=== PATIENT | female | born 1995 | race African-American/Black ===

== ENCOUNTER 2020-06-25 15:47 | Observation (INO) | payer OTHER, SELFPAY ==
[2020-06-25] VITALS (13 sets, daily range): BP systolic 103–141; BP diastolic 47–70; PULSE 80–95; RESP 18–32; TEMP 36.2–37.4; O2SAT 96–100; BMI 55.1
--- NOTE | ~2020-06-25 | CT_ITS ---
EXAMINATION: CTA chest PE protocol DATE: 06/25/2020 18:57 INDICATION: Chest pain TECHNIQUE: Computed tomography (CT) pulmonary angiogram of the chest was performed with 100 mL Omnipa que-350 intravenous contrast. Additional 3D reconstructions utilizing coronal maximum intensity proje ction (MIP) were performed. Automated exposure control and iterative reconstruction technique were em ployed. The dose-length product was 967.08 mGy-cm. COMPARISON: None FINDINGS: Good contrast opacification of the pulmonary arteries. There is mild streak artifact from dense contr ast in the superior vena cava and right atrium. Mild to moderate scattered respiratory motion artifac t. Together this significantly decreases sensitivity in the subsegmental and several of the segmental pulmonary arteries with evaluation in the basilar subsegmental pulmonary arteries is essentially non diagnostic. No pulmonary embolism. No pneumonia or other airspace disease, pulmonary edema, pleural e ffusion or pneumothorax. Mild cardiomegaly. Thoracic aorta is normal in caliber with no dissection. M edian sternotomy wires and postoperative changes along the pulmonary outflow tract consistent with re ported history of prior congenital heart defect repair. Mild mediastinal lymphadenopathy with largest lymph node measuring 2.0 x 1.4 cm at the AP window. IMPRESSION: 1. No pulmonary embolism or other acute cardiopulmonary disease. Sensitivity in some of the segmental and subsegmental pulmonary arteries is significantly decreased by mild to moderate motion artifact. 2. Cardiomegaly with postoperative changes consistent with reported history of prior congenital heart defect repair. 3. Nonspecific mild NaSal lymphadenopathy which is likely reactive. Reviewed, dictated and finalized at location A. SCHOOL HVAC R INSTRUCTOR IMPRESSION: 1. No pulmonary embolism or other acute cardiopulmonary disease. Sensitivity in some of the segmental and subsegmental pulmonary arteries is significantly dec reased by mild to moderate motion artifact. 2. Cardiomegaly with postoperative changes consistent with reported history of prior congenital heart defect repair. 3. Nonspecific mild NaSal lymphadenopathy which is likely reactive.
--- NOTE | ~2020-06-25 | XR_ITS ---
EXAMINATION: XR chest 1V portable DATE: 06/25/2020 16:51 INDICATION: Shortness of breath and left-sided chest pain. TECHNIQUE: frontal view of the chest was obtained. COMPARISON: None FINDINGS: Evaluation limited by portable technique and patient body habitus. Cardiomegaly. No definitive airspa ce opacities, pleural effusion or pneumothorax. A few surgical clips projecting over the superior med iastinum. IMPRESSION: 1. Cardiomegaly. 2. No evident airspace disease although sensitivity is decreased by body habitus and portable techniq ue. Reviewed, dictated and finalized at location A. IAL LIBRARY LIBRARIAN IMPRESSION: 1. Cardiomegaly. 2. No evident airspace disease although sensitivity is decreased by body habitu s and portable technique.
--- NOTE | 2020-06-25 16:16 | ECG_ITS ---
Measurements Intervals [place] Rate: 95 P: 31 NE: 207 QRS: 70 QRSD: 169 T: 53 QT: 424 QTc: 535 Interpretive Statements SINUS RHYTHM WITH FIRST DEGREE AV BLOCK RIGHT BUNDLE BRANCH BLOCK ABNORMAL ECG Electronically Signed On 06-25-2020 16:21:03 BUDGET MANAGER by Krishna Freeman D.O.
--- NOTE | 2020-06-25 16:22 | ED.CHESTPAIN ---
HPI - Chest Pain General Chief Complaint: Chest Pain Stated Complaint: Chest pain Time Seen by Provider: 06/25/20 15:58 Source: patient Mode of arrival: ambulatory Limitations: no limitations History of Present Illness HPI narrative: This patient is a 25 year old female who presents for evaluation of left chest pain. She noted yesterday she was having sharp chest pain when she coughs , breaths or moves a certain way. She also reports she noticed shortness of breath with walking in to Er. She denies fever, cough, nausea, vomiting leg swelling, calf pain. She does note she had an outpatient. gynecological procedure done in clinic 2 weeks ago. She does have a cardiac history. Her aunt states she had hole in her heart as an that was repaired. She follows cardiology yearly . She was evaluated 1 months ago and she was told she is doing well . Related Data Home Medications Medication Instructions Recorded Confirmed furosemide 40 mg PO DAILY 06/25/20 06/25/20 Allergies Allergy/AdvReac Type Severity Reaction Status Date / Time No Known Allergies Allergy Unknown Verified 06/25/20 21:36 Review of Systems Review of Systems: All systems reviewed & are unremarkable except as noted in HPI and below Constitutional: Constitutional: Denies chills and Denies fever(s) Cardiovascular: Cardiovascular: Reports chest pain and Denies radiating jaw, neck or arm pain Respiratory: Respiratory: Denies cough, Reports dyspnea and Denies wheezing Gastrointestinal: Gastrointestinal: Denies abdominal pain and Denies nausea PMFSH Past Medical History Medical History Anemia Surgical History Surgical History H/O heart surgery Family History Family History Sibling Congestive heart failure Mother Diabetes mellitus Grandparent Malignant neoplasm of prostate Grandparent Diabetes mellitus Social History Social History Smoking status: Never smoker Alcohol intake: current Drinks per week: 3 Substance use: never Gender identity (if verbalized by the patient): Female Spiritual care concerns: No Exam Const: General: no acute distress and alert Orientation/consciousness: patient oriented x3 HENMT: Head: normocephalic and atraumatic General nose exam: No nasal polyps present Eyes: EOM: EOMs intact bilaterally Chest: Chest palpation & inspection: tenderness Resp: Effort & Inspection: normal respiratory effort and no retractions Auscultation: clear to auscultation bilaterally Cardio: Rate: regular rate Rhythm: regular rhythm Heart sounds: no murmurs GI: GI Palp: Yes Soft to palpation, No Tenderness to palpation present (GI), No Guarding due to palpation present (GI) and No Rigid due to palpation Auscultation: bowels sounds not normal : Speculum Exam - Vagina: vaginal bleeding (minimal oozing, no clots) Speculum Exam - Cervix: Cervical os closed Skin: General skin exam: normal color Rashes: no rashes Neuro: General: patient oriented x3 and moves all extremities Course Reevaluation(s) Reevaluation #1: I discussed with patient that she has anemia likely cause of her sob. She has history of anemia and heavy menstrual cycles. She is currently on her cycle . She is only having to use 3 pads a day. Date: 06/25/20 Time: 18:00 Consultations Consultation #1: I discussed case with hospitalist (Stephanie silverio) who spoke with her attending. She states attending will not accept patient and patient needs to be admitted to web editor. They will consult if needed. Date: 06/25/20 Time: 18:45 Consultation #2: I Discussed case with Dr. Fulton while she is in ER. 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 I Discussed case. She states she will admit patient if no acute cardiac or pulmonary issues.
[2020-06-25 17:03] LABS: Basophils Percent Auto 0.4 % (0.2-1.2); Eosinophils Absolute Auto 0.1 K/mm3 (0-0.3); Eosinophils Percent Auto 1.2 % (0-4.4); Immature Granulocyte Absolute 0.06 K/mm3 (0.00-0.031); Immature Granulocyte Percent A 0.7 % (0-0.5); Lymphocytes Absolute Auto 1.79 K/mm3 (0.9-3.2); Lymphocytes Percent Auto 19.5 % (18.3-44.2); Mean Corpuscular HGB Conc 26.9 g/dl (32-36); Mean Corpuscular Hemoglobin 17.9 pg (26-34); Mean Corpuscular Volume 66.7 fl (80-100); Mean Platelet Volume 9.9 fl (7.4-10.4); Monocytes Absolute Auto 0.7 K/mm3 (0.1-0.6); Monocytes Percent Auto 7.6 % (2.6-8.5); Neutrophils Absolute Auto 6.5 K/mm3 (1.3-6.7); Neutrophils Percent Auto 70.6 % (45.5-73.1); Nucleated Red Blood Cells Perc 0.4 % (0.0-0.2); Platelet Count Result 320 k/mm3 (150-375); Red Blood Count 2.79 M/mm3 (4.2-5.4); Red Cell Distribution Width 18.2 % (11.5-14.5); White Blood Count 9.2 K/mm3 (4.5-10.0)
[2020-06-25 17:08] LABS: Hematocrit 18.6 % (37.0-47.0)
[2020-06-25 17:09] LABS: Anisocytosis 2+ (NORMAL); Hypochromasia 2+ (NORMAL); Platelet Estimate Adequate (Adequate)
[2020-06-25 17:13] LABS: Anion Gap 8 mmol/L (8-16); Blood Urea Nitrogen 7 mg/dL (7-17); Calcium 8.8 mg/dL (8.4-10.2); Carbon Dioxide 29 mmol/L (22-30); Chloride 102 mmol/L (98-107); Estimated CRCL calculation 199 ml/min; Estimated Glomerular Filt Rate > 60; Glucose 121 mg/dL (65-105); Potassium 3.3 mmol/L (3.4-5.0); Sodium 139 mmol/L (137-145)
[2020-06-25 17:15] LABS: INR 1.1; Prothrombin Time 14.5 Seconds (11.1-14.7)
[2020-06-25 17:16] LABS: Partial Thromboplastin Time 24.5 SECONDS (22.3-36.8)
[2020-06-25 17:18] LABS: D Dimer 0.52 ug/mL (<0.48)
[2020-06-25 17:25] LABS: Troponin I < 0.012 ng/mL (0.000-0.034)
[2020-06-25 17:42] LABS: Iron 12 ug/dL (37-170)
[2020-06-25 17:52] LABS: Percent Iron Saturation 3 % (20-50)
[2020-06-25] MEDS: TUBING, BLOOD PLUM PUMP TUBING 1 EACH XX (19:52)
[2020-06-25] MEDS: SODIUM CHLORIDE 0.9% IV 250 ML 30 ML IV CONT (19:52)
[2020-06-25 19:53] LABS: Troponin I < 0.012 ng/mL (0.000-0.034)
--- NOTE | 2020-06-25 21:20 | ADMGEN ---
This patient, Angela Helms, was admitted to Medical Room 348-01. Patient/family oriented to hospital policies and general routines including ID bracelet, bed and alarms, visiting hours, pain management, procedures, bathroom and other care routines, personal items, smoking policy, room service/diet, and visiting hours. Information on how to activate the Rapid Response Team has been discussed. Patient/Family are encouraged to report perceived risks to care and to ask questions if they do not understand what they are told or what they should do.
[2020-06-26] VITALS (13 sets, daily range): BP systolic 110–144; BP diastolic 37–85; PULSE 75–87; RESP 14–20; TEMP 35.8–37.2; O2SAT 98–100
[2020-06-26 08:09] LABS: Basophils Percent Auto 0.4 % (0.2-1.2); Eosinophils Absolute Auto 0.2 K/mm3 (0-0.3); Eosinophils Percent Auto 2.2 % (0-4.4); Hematocrit 24.7 % (37.0-47.0); Hemoglobin 7.3 g/dL (12.0-15.0); Immature Granulocyte Absolute 0.06 K/mm3 (0.00-0.031); Immature Granulocyte Percent A 0.6 % (0-0.5); Lymphocytes Absolute Auto 2.26 K/mm3 (0.9-3.2); Lymphocytes Percent Auto 20.9 % (18.3-44.2); Mean Corpuscular HGB Conc 29.6 g/dl (32-36); Mean Corpuscular Hemoglobin 21.2 pg (26-34); Mean Corpuscular Volume 71.6 fl (80-100); Mean Platelet Volume 9.9 fl (7.4-10.4); Monocytes Absolute Auto 0.7 K/mm3 (0.1-0.6); Monocytes Percent Auto 6.1 % (2.6-8.5); Neutrophils Absolute Auto 7.6 K/mm3 (1.3-6.7); Neutrophils Percent Auto 69.8 % (45.5-73.1); Nucleated Red Blood Cells Perc 0.3 % (0.0-0.2); Platelet Count Result 294 k/mm3 (150-375); Red Blood Count 3.45 M/mm3 (4.2-5.4); Red Cell Distribution Width 21.9 % (11.5-14.5); White Blood Count 10.8 K/mm3 (4.5-10.0)
[2020-06-26 09:35] LABS: Platelet Estimate Adequate (Adequate)
[2020-06-26 09:36] LABS: Anisocytosis 2+ (NORMAL); Hypochromasia 1+ (NORMAL); Ovalocytes 1+ (NORMAL)
--- NOTE | 2020-06-26 11:02 | PM.IMHP ---
H&P: HPI History of Present Illness Date/Time: 06/26/20 11:02 Chief complaint: Symptomatic Anemia, Abnormal Vaginal Bleeding Narrative: Angela Helms is a 25 year old female who presented to the Ed last night with CP and SOB, was ruled out for cardiopulmonary cause but had Hgb of 5.0. Has heavy menstrual bleeding, at end of period now and not heavy today. Previously used Depo but did not like how it made her feel and gained weight. Now on OCP but forgets pills a lot and bleeds more than once a month. SHe was seen by me last night in the ED and this am. Today she feels completely better, all symptoms have resolved, bleeding is minimal. Review of Systems Review of Systems: All systems reviewed & are unremarkable except as noted in HPI and below (ED note and HPI) PMFSH Past Medical History Medical History Anemia Surgical History Surgical History H/O heart surgery Family History Family History Sibling Congestive heart failure Mother Diabetes mellitus Grandparent Malignant neoplasm of prostate Grandparent Diabetes mellitus Social History Social History Smoking status: Never smoker Alcohol intake: current Drinks per week: 3 Substance use: never Gender identity (if verbalized by the patient): Female Spiritual care concerns: No Meds Home Medications and Allergies Home Medications Medication Instructions Recorded Confirmed Type furosemide 40 mg PO DAILY 06/25/20 06/25/20 History Allergies Allergy/AdvReac Type Severity Reaction Status Date / Time No Known Allergies Allergy Unknown Verified 06/25/20 21:36 Vital Signs Vital Signs - 24 hr 06/25/20 16:13 06/25/20 17:24 06/25/20 18:01 Temperature 98.2 F Pulse Rate 95 89 91 Respiratory Rate 20 20 20 Blood Pressure 141/70 H 103/56 L 124/61 Pulse Oximetry 97 98 98 06/25/20 18:44 06/25/20 19:42 06/25/20 20:00 Temperature 99.2 F 98.2 F Pulse Rate 89 91 88 Respiratory Rate 20 18 24 H Blood Pressure 124/61 123/67 112/51 L Pulse Oximetry 98 99 98 06/25/20 20:53 06/25/20 20:55 06/25/20 21:30 Temperature 99.1 F 99.4 F Pulse Rate 87 87 88 Respiratory Rate 32 H 32 H 18 Blood Pressure 117/56 L 117/56 L 124/62 Pulse Oximetry 96 96 100 06/25/20 22:00 06/25/20 22:44 06/25/20 23:01 Temperature 97.1 F L 97.1 F L 97.1 F L Pulse Rate 89 84 85 Respiratory Rate 20 20 18 Blood Pressure 121/62 118/47 L 120/54 L Pulse Oximetry 100 100 99 06/25/20 23:16 06/26/20 00:16 06/26/20 01:16 Temperature 97.3 F L 97.3 F L 97.3 F L Pulse Rate 80 87 81 Respiratory Rate 18 18 20 Blood Pressure 124/53 L 110/50 L 140/61 Pulse Oximetry 100 100 100 06/26/20 02:16 06/26/20 02:58 06/26/20 03:18 Temperature 97.7 F 97 F L 96.4 F L Pulse Rate 82 82 80 Respiratory Rate 20 20 20 Blood Pressure 118/59 L 125/85 117/50 L Pulse Oximetry 99 100 100 06/26/20 03:35 06/26/20 04:35 06/26/20 05:04 Temperature 97.3 F L 98.9 F 98.9 F Pulse Rate 80 80 80 Respiratory Rate 20 18 18 Blood Pressure 125/50 L 144/60 H 144/60 H Pulse Oximetry 100 98 98 06/26/20 05:35 06/26/20 06:30 06/26/20 10:00 Temperature 97.3 F L 98.1 F 96.8 F L Pulse Rate 75 75 82 Respiratory Rate 18 20 16 Blood Pressure 137/64 127/56 L 127/52 L Pulse Oximetry 99 99 100 Exam Const: General: no acute distress Neck: Neck: no JVD Resp: Auscultation: clear to auscultation bilaterally Cardio: Rate: regular rate Rhythm: regular rhythm GI: GI Palp: Yes Soft to palpation Auscultation: normal bowel sounds Other: exam limited by habitus : Other: deferred Skin: General skin exam: normal color Extrem: General: normal to inspection Psych: Mental Status: mental status grossly normal Affect: normal affect H&P: Results Labs Labs: Short CBC 12/
--- NOTE | 2020-06-26 11:25 | PM.DS ---
DS: Admitting Diagnosis Admitting Diagnosis Admitting Diagnosis: Symptomatic Anemia, Abnormal Vaginal Bleeding DS: Discharge Diagnosis Discharge Diagnosis (1) Symptomatic anemia: Code(s): D64.9 - Anemia, unspecified Status: Acute (2) Abnormal uterine bleeding: Code(s): N93.9 - Abnormal uterine and vaginal bleeding, unspecified Status: Acute DS: Summary Hospital Course Reason for hospitalization: severe anemia Hospital Course: Transfused 2 units pRBCs with complete resolution of all symptoms. Status at Discharge Functional status at discharge: independent ambulation Overall status at discharge: patient is back to baseline Time Spent with Patient Time attestation: Total time spent providing and/or coordinating discharge services: Time spent: Less than 30 minutes Exam Const: General: no acute distress Resp: Auscultation: clear to auscultation bilaterally Cardio: Rate: regular rate Rhythm: regular rhythm Psych: Mental Status: mental status grossly normal DS: Data Data Completed and Pending Labs on day of discharge: Labs from last 24 hours 06/26/20 06/25/20 06/25/20 07:55 19:25 17:38 WBC 10.8 H RBC 3.45 L Hgb 7.3 L Hct 24.7 L MCV 71.6 L D MCH 21.2 L D MCHC 29.6 L RDW 21.9 H Plt Count 294 MPV 9.9 Immature Gran % (Auto) 0.6 H Neut % (Auto) 69.8 Lymph % (Auto) 20.9 [place] % (Auto) 6.1 Eos % (Auto) 2.2 Baso % (Auto) 0.4 Lymph # (Auto) 2.26 [place] # (Auto) 0.7 H Eos # (Auto) 0.2 Baso # (Auto) 0.0 Abs Immat Gran (auto) 0.06 H Absolute Neuts (auto) 7.6 H Absolute Nucleated RBC 0.0 Nucleated RBC % 0.3 H Platelet Estimate Adequate Hypochromasia 1+ Anisocytosis 2+ Ovalocytes 1+ PT INR APTT D-Dimer Sodium Potassium Chloride Carbon Dioxide Anion Gap BUN Creatinine Estim Creat Clear Calc Estimated GFR Glucose Calcium Iron TIBC % Saturation Troponin I < 0.012 Blood Type B Positive Antibody Screen Negative Crossmatch See Detail 06/25/20 06/25/20 06/25/20 16:53 16:53 16:53 WBC RBC Hgb Hct MCV MCH MCHC RDW Plt Count MPV Immature Gran % (Auto) Neut % (Auto) Lymph % (Auto) [place] % (Auto) Eos % (Auto) Baso % (Auto) Lymph # (Auto) [place] # (Auto) Eos # (Auto) Baso # (Auto) Abs Immat Gran (auto) Absolute Neuts (auto) Absolute Nucleated RBC Nucleated RBC % Platelet Estimate Hypochromasia Anisocytosis Ovalocytes PT 14.5 INR 1.1 APTT 24.5 D-Dimer 0.52 H Sodium 139 Potassium 3.3 L Chloride 102 Carbon Dioxide 29 Anion Gap 8 BUN 7 Creatinine 0.60 L Estim Creat Clear Calc 199 Estimated GFR > 60 Glucose 121 H Calcium 8.8 Iron 12 L TIBC 420 % Saturation 3 L Troponin I < 0.012 Blood Type Antibody Screen Crossmatch 06/25/20 16:53 WBC 9.2 RBC 2.79 L Hgb 5.0 L* Hct 18.6 L* MCV 66.7 L MCH 17.9 L MCHC 26.9 L RDW 18.2 H Plt Count 320 MPV 9.9 Immature Gran % (Auto) 0.7 H Neut % (Auto) 70.6 Lymph % (Auto) 19.5 [place] % (Auto) 7.6 Eos % (Auto) 1.2 Baso % (Auto) 0.4 Lymph # (Auto) 1.79 [place] # (Auto) 0.7 H Eos # (Auto) 0.1 Baso # (Auto) 0.0 Abs Immat Gran (auto) 0.06 H Absolute Neuts (auto) 6.5 Absolute Nucleated RBC 0.0 Nucleated RBC % 0.4 H Platelet Estimate Adequate Hypochromasia 2+ Anisocytosis 2+ Ovalocytes PT INR APTT D-Dimer Sodium Potassium Chloride Carbon Dioxide Anion Gap BUN Creatinine Estim Creat Clear Calc Estimated GFR Glucose Calcium Iron TIBC % Saturation Troponin I Blood Type Antibody Screen Crossmatch Discharge Plan Discharge Attending physician on discharge: Shantal Fulton Discharging Clinician: Shantal Fulton Anticipated Discharge Date/Time: 06/26/20 14
--- NOTE | 2020-06-26 14:53 | PC.NURSE ---
Patient refuses flu vaccine. She voiced that she will get it at her doctors office.
== END 2020-06-26 15:05 | disposition home or self-care (01) ==
LOC: ANHED 19:42 → ANH3MED 20:05
PROVIDERS: Admitting Provider Obstetrics & Gynecology; Emergency Provider General Practice; PCP Emergency Medicine; Visit Provider Obstetrics & Gynecology
DX: D64.9 Anemia, unspecified (principal); N93.9 Abnormal uterine and vaginal bleeding, unspecified; R07.89 Other chest pain; I51.7 Cardiomegaly; R59.0 Localized enlarged lymph nodes; R94.31 Abnormal electrocardiogram [ECG] [EKG]; Z98.890 Other specified postprocedural states; Z79.899 Other long term (current) drug therapy
CPT/HCPCS: 36415; 36430; 71045; 71275; 80048; 81025; 83540; 83550; 84484; 85025; 85380; 85610; 85730; 86850; 86900; 86901; 86923; 93005; 96360; 96361; 96374; 99285; G0378; G0379; J0131; J7050; P9016; Q9967

== ENCOUNTER 2020-10-17 16:23 | Emergency (ER) | payer OTHER, SELFPAY ==
[2020-10-17 16:27] VITALS: BP 122/59; PULSE 80; RESP 16; TEMP 36.3; O2SAT 100
[2020-10-17 16:42] LABS: Basophils Absolute Auto 0.1 K/mm3 (0.0-0.1); Basophils Percent Auto 0.7 % (0.2-1.2); Eosinophils Absolute Auto 0.2 K/mm3 (0-0.3); Eosinophils Percent Auto 2.4 % (0-4.4); Hematocrit 38.5 % (37.0-47.0); Hemoglobin 12.8 g/dL (12.0-15.0); Immature Granulocyte Absolute 0.02 K/mm3 (0.00-0.031); Immature Granulocyte Percent A 0.3 % (0-0.5); Lymphocytes Absolute Auto 2.09 K/mm3 (0.9-3.2); Lymphocytes Percent Auto 29.1 % (18.3-44.2); Mean Corpuscular HGB Conc 33.2 g/dl (32-36); Mean Corpuscular Hemoglobin 26.4 pg (26-34); Mean Corpuscular Volume 79.4 fl (80-100); Monocytes Absolute Auto 0.5 K/mm3 (0.1-0.6); Monocytes Percent Auto 6.5 % (2.6-8.5); Neutrophils Absolute Auto 4.4 K/mm3 (1.3-6.7); Platelet Count Result 315 k/mm3 (150-375); Red Blood Count 4.85 M/mm3 (4.2-5.4); Red Cell Distribution Width 13.3 % (11.5-14.5); White Blood Count 7.2 K/mm3 (4.5-10.0)
[2020-10-17 16:54] LABS: Alanine Aminotransferase 18 U/L (4-35); Albumin Level 4.3 g/dL (3.5-5.1); Alkaline Phosphatase 104 U/L (38-126); Anion Gap 7 mmol/L (8-16); Aspartate Amino Transferase 22 U/L (14-36); Bilirubin,Total 0.3 mg/dL (0.2-1.3); Blood Urea Nitrogen 9 mg/dL (7-17); Calcium 9.3 mg/dL (8.4-10.2); Carbon Dioxide 28 mmol/L (22-30); Chloride 106 mmol/L (98-107); Estimated CRCL calculation 193 ml/min; Estimated Glomerular Filt Rate > 60; Glucose 111 mg/dL (65-105); Lipase 41 U/L (23-300); Potassium 3.5 mmol/L (3.4-5.0); Sodium 141 mmol/L (137-145)
--- NOTE | 2020-10-17 21:34 | PC.NURSE ---
Patient called with no answer at [phone]
== END 2020-10-17 21:34 | disposition left against medical advice (07) ==
LOC: ANHED 21:48
PROVIDERS: Emergency Provider Emergency Medicine; PCP Emergency Medicine
DX: R10.30 Lower abdominal pain, unspecified (principal)
CPT/HCPCS: 36415; 80053; 83690; 85025; 99199

== ENCOUNTER → 2020-10-22 01:52 | Outpatient (CLI) | payer OTHER, SELFPAY ==
[2020-10-22 19:34] LABS: SARS-CoV-2 RNA PCR Negative
== END ==
PROVIDERS: PCP Emergency Medicine; Visit Provider Obstetrics & Gynecology
DX: Z01.812 Encounter for preprocedural laboratory examination (principal); Z20.822 Contact with and (suspected) exposure to COVID-19
CPT/HCPCS: C9803; U0003; U0005

== ENCOUNTER 2020-10-22 11:00 | Outpatient (CLI) | payer OTHER, SELFPAY ==
--- NOTE | 2020-10-22 11:18 | ECG_ITS ---
Measurements Intervals [place] Rate: 74 P: 40 HI: 231 QRS: 72 QRSD: 174 T: 57 QT: 468 QTc: 520 Interpretive Statements SINUS RHYTHM WITH FIRST DEGREE AV BLOCK RIGHT BUNDLE BRANCH BLOCK ABNORMAL ECG Electronically Signed On 10-22-2020 11:36:15 CDT by Krishna Freeman D.O.
[2020-10-22 11:21] LABS: Hematocrit 40.7 % (37.0-47.0); Hemoglobin 13.2 g/dL (12.0-15.0)
[2020-10-22 11:31] LABS: Potassium 3.9 mmol/L (3.4-5.0)
[2020-10-22 12:01] LABS: Anion Gap 5 mmol/L (8-16); Blood Urea Nitrogen 10 mg/dL (7-17); Calcium 8.9 mg/dL (8.4-10.2); Carbon Dioxide 32 mmol/L (22-30); Chloride 103 mmol/L (98-107); Estimated Glomerular Filt Rate > 60; Glucose 121 mg/dL (65-105); Sodium 140 mmol/L (137-145)
== END 2020-10-22 11:01 | disposition home or self-care (01) ==
PROVIDERS: PCP Emergency Medicine; Visit Provider Anesthesiology
DX: N93.9 Abnormal uterine and vaginal bleeding, unspecified (principal); Z79.899 Other long term (current) drug therapy; Z01.818 Encounter for other preprocedural examination; I45.10 Unspecified right bundle-branch block; I44.0 Atrioventricular block, first degree
CPT/HCPCS: 36415; 80048; 85014; 85018; 93005; C9803; U0003; U0005

== ENCOUNTER 2020-10-26 01:40 | Day surgery (SDC) | payer OTHER, SELFPAY ==
[2020-10-11 10:38] VITALS: BMI 52.8
[2020-10-26] MEDS: ACETAMINOPHEN 500 MG TABLET 1000 MG PO (10:59)
[2020-10-26 11:04] VITALS: BMI 53.6
[2020-10-26 11:05] VITALS: BP 145/73; PULSE 83; RESP 20; TEMP 36.6; O2SAT 98
--- NOTE | 2020-10-26 11:17 | WPDHPUPDATE1 ---
History and Physical Update Update Date/Time: 10/26/20 11:17 History and Physical has been reviewed, including an updated exam of the patient. There are NO changes in the patient's condition. Risks, benefits, and alternatives have been discussed and questions answered. Patient agrees to proceed with procedure.
--- NOTE | 2020-10-26 11:29 | WPDANESEPPF ---
Anes - Initial Pre Proc Eval Procedure: Operation Date: 10/26/20 12:45 Proposed Procedures p Hysteroscopy, Endometrial Biopsy with Polypectomy - Teddy Sorto MD Date/Time: 10/26/20 11:29 Surgeon: Teddy Sorto MD Pre Op Diagnosis: uterine polyp Patient Data Age: 25 Gender: F Height: 5 ft 7 in Weight: 155.2 kg Last Vital Signs Temp 36.6 C 10/26/20 11:05 Pulse 83 10/26/20 11:05 Resp 20 10/26/20 11:05 BP 145/73 H 10/26/20 11:05 Pulse Ox 98 10/26/20 11:05 Allergies Allergy/AdvReac Type Severity Reaction Status Date / Time No Known Allergies Allergy Unknown Verified 10/26/20 10:54 Home Medications Medication Instructions Recorded Confirmed Type furosemide 40 mg PO DAILY 06/25/20 10/26/20 History ferrous sulfate 325 mg PO BID #60 tablet 06/26/20 10/26/20 Rx Patient hx anesthesia problems: none Family hx anesthesia problems: none PMFSH Past Medical History Medical History Anemia Surgical History Surgical History H/O heart surgery Tetralogy of Fallot s/p repair Family History Family History Sibling Congestive heart failure Mother Diabetes mellitus Grandparent Malignant neoplasm of prostate Grandparent Diabetes mellitus Social History Social History Smoking status: Never smoker Alcohol intake: current Drinks per week: 3 Substance use: never Living arrangements: with family Gender identity (if verbalized by the patient): Female Spiritual care concerns: No Anes - Eval Final PreProcedure Day of Procedure 10/26/20 11:29 Patient weight: super morbidly obese Heart: regular rate and rhythm Lungs: clear to auscultation Airway: Mallampati scale class II Neurological: alert and oriented Last oral intake: >/= 8 hours ASA classification: III Emergent: no Anesthetic plan: proceed Anesthesia type and monitoring: general GIVS and standard monitoring Informed Consent: The patient's anesthetic plan and its attendant risks and benefits were discussed with the patient/family/POA. Questions were solicited and answers provided to the satisfaction of the patient/family/POA.
[2020-10-26] MEDS: LACTATED RINGERS 1,000 ML 30 ML IV CONT (11:38)
[2020-10-26 12:32] VITALS: BP 130/88; PULSE 74; RESP 12; O2SAT 100
--- NOTE | 2020-10-26 12:50 | P.OP_ITS ---
Procedure Note - Detailed Date of procedure: 10/26/20 Pre-op diagnosis: uterine polyp Abnormal uterine bleeding Post-op diagnosis: same Procedure performed: Hysteroscopy D&C, Polypectomy Description of procedure: The patient was taken the operating room. She was prepped and draped in the dorsal lithotomy position after induction of mac anesthesia. A speculum was placed in the vagina. The cervix grasped with a ten aculum. The cervix was injected at 3 and 9:00 a.m. with 1% lidocaine. Cervix was dilated up to 1 cm. The hysteroscope was inserted the intrauterine cavity and the above findings were noted. A medium-size curette was then used to curettage all surfaces within the endometrial cavity. The endometrial curettings were collected on a Telfa. Polypectomy was performed using hysteroscopic scissors. Before was completely transected across the base was grasped with polyp forceps. Samples were submitted to the pathology department. Hysteroscope was reinserted the intrauterine cavity to re-examine the endometrial surfaces. The hysteroscope was withdrawn. The tenaculum was removed. The speculum was removed. The patient tolerated the procedure well. She was taken recovery room stable condition. Sponge lap needle counts were correct x2. Anesthesia: MAC Surgeon: Teddy Sorto MD Estimated blood loss (mL): 75 Drains: No Packing: No Pathology: yes Complications: No immediate complications Condition: stable Disposition: PACU Findings: There was some thickening of the endometrium. There was normal appearing vulva vagina and cervix.
[2020-10-26 13:00] VITALS: BP 131/74; PULSE 72; RESP 20
[2020-10-26 13:25] VITALS: BP 133/70; PULSE 72; RESP 20
== END 2020-10-26 13:34 | disposition home or self-care (01) ==
PROVIDERS: PCP Emergency Medicine; Visit Provider Obstetrics & Gynecology
PROC: 0U5B8ZZ Destruction of Endometrium, Via Natural or Artificial Opening Endoscopic (ICD-10-PCS; CPT 58563; principal; 2020-10-26 12:45)
DX: N93.9 Abnormal uterine and vaginal bleeding, unspecified (principal); N84.0 Polyp of corpus uteri; D64.9 Anemia, unspecified; E66.01 Morbid (severe) obesity due to excess calories; Z68.43 Body mass index [BMI] 50.0-59.9, adult
CPT/HCPCS: 58558; 88305; A9270; J2250; J2405; J2704; J3010; J7030; J7120

== ENCOUNTER 2021-01-22 14:06 | Emergency (ER) | payer OTHER, SELFPAY ==
[2021-01-22 14:11] VITALS: BP 138/88; PULSE 82; RESP 16; TEMP 36.4; O2SAT 99
--- NOTE | 2021-01-22 14:55 | ED.FEMALEGU ---
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 Patient denies any vaginal bleeding or discharge. Patient denies any dysuria. Patient denies any fever or chills. Related Data Home Medications Medication Instructions Recorded Confirmed furosemide 40 mg PO DAILY 06/25/20 10/26/20 Allergies Allergy/AdvReac Type Severity Reaction Status Date / Time No Known Allergies Allergy Unknown Verified 10/26/20 10:54 Review of Systems Review of Systems: All systems reviewed & are unremarkable except as noted in HPI and below Constitutional: Constitutional: Denies body ache(s), Denies chills, Denies excessive sweating, Denies fatigue, Denies fever(s), Denies headache(s), Denies lethargy, Denies malaise, Denies weakness and Denies weight loss Eyes: Eyes: Denies blurry vision, Denies change in vision and Denies loss of vision ENT: Denies dizziness, Denies ear discharge, Denies headache(s), Denies lip swelling, Denies epistaxis, Denies nasal congestion, Denies neck pain, Denies throat swelling and Denies tongue swelling Cardiovascular: Cardiovascular: Denies chest pain, Denies chest pain at rest, Denies chest pain with activity, Denies diaphoresis, Denies rapid heart rate, Denies edema, Denies irregular heart rhythm, Denies lightheadedness, Denies palpitations, Denies dyspnea and Denies dyspnea on exertion Respiratory: Respiratory: Denies chest congestion, Denies cough, Denies hemoptysis, Denies dyspnea and Denies dyspnea on exertion Gastrointestinal: Gastrointestinal: Denies abdominal pain, Denies melena, Denies hematochezia, Denies diarrhea, Denies nausea, Denies vomiting and Denies hematemesis Musculoskeletal: Musculoskeletal: Denies abnormal gait, Denies deformity, Denies joint swelling, Denies limited range of motion, Denies neck pain and Denies numbness Neurologic: Denies Abnormal speech present, Denies abnormal gait, Denies confusion, Denies dizziness, Denies headache(s), Denies focal weakness, Denies loss of vision, Denies numbness, Denies Other visual disturbances, Denies Sensory deficit (Neuro) and Denies weakness Psychiatric: Psychiatric: Denies confusion, Denies depression, Denies auditory hallucinations, Denies homicidal ideation and Denies suicidal ideation Endocrine: Endocrine: Denies cold intolerance, Denies excessive sweating, Denies fatigue, Denies heat intolerance and Denies palpitations Hematologic/Lymphatic: Hematologic/Lymphatic: Denies easy bleeding and Denies easy bruising Allergic/Immunologic: Allergic/Immunologic: Denies lip swelling, Denies throat swelling and Denies tongue swelling PMFSH Past Medical History Medical History Anemia Surgical History Surgical History H/O heart surgery Tetralogy of Fallot s/p repair Family History Family History Sibling Congestive heart failure Mother Diabetes mellitus Grandparent Malignant neoplasm of prostate Grandparent Diabetes mellitus Social History Social History Smoking status: Never smoker Alcohol intake: current Drinks per week: 3 Substance use: never Gender identity (if verbalized by the patient): Female Spiritual care concerns: No Exam Const: General: cooperative, comfortable, no acute distress, well developed, alert and awake; No confusion Nutritional Appearance: obese Orientation/consciousness: oriented to person, oriented to place, oriented
[2021-01-22 15:16] LABS: Add Urine Microscopic? YES; Appearance Urine Clear (Clear); Bacteria Urine Trace /hpf; Bilirubin Urine Negative (Negative); Blood Urine Negative (Negative); Color Urine Yellow (Yellow); Glucose Urine UA Negative (Negative); Ketones Urine Negative (Negative); Leukocyte Esterase Ur Trace LEU/UL (Negative); Mucus Urine Rare /lpf; Nitrate Urine Negative (Negative); Protein Urine 1+ mg/dL (Negative); RBC Urine 0-2 /hpf (0-2); Specific Grav Ur 1.019 (1.001-1.035); Squamous Epithelial Cell Urine Many /hpf (Few); WBC Urine 0-3 /hpf
[2021-01-22 16:18] VITALS: BP 145/80; PULSE 85; RESP 19; O2SAT 100
== END 2021-01-22 16:20 | disposition home or self-care (01) ==
PROVIDERS: Emergency Provider Emergency Medicine; PCP Emergency Medicine
DX: T83.84XA Pain due to genitourinary prosthetic devices, implants and grafts, initial encounter (principal); R10.30 Lower abdominal pain, unspecified; Y76.1 Therapeutic (nonsurgical) and rehabilitative obstetric and gynecological devices associated with adverse incidents
CPT/HCPCS: 81001; 99283

== ENCOUNTER 2021-02-12 15:31 | Emergency (ER) | payer OTHER, SELFPAY ==
[2021-02-12 15:33] VITALS: BP 153/87; PULSE 91; RESP 20; TEMP 36.6; O2SAT 99
[2021-02-12 16:11] LABS: Basophils Absolute Auto 0.1 K/mm3 (0.0-0.1); Basophils Percent Auto 0.7 % (0.2-1.2); Eosinophils Absolute Auto 0.2 K/mm3 (0-0.3); Hematocrit 37.4 % (37.0-47.0); Hemoglobin 12.3 g/dL (12.0-15.0); Immature Granulocyte Absolute 0.01 K/mm3 (0.00-0.031); Immature Granulocyte Percent A 0.1 % (0-0.5); Lymphocytes Percent Auto 27.1 % (18.3-44.2); Mean Corpuscular HGB Conc 32.9 g/dl (32-36); Mean Corpuscular Hemoglobin 27.2 pg (26-34); Mean Corpuscular Volume 82.7 fl (80-100); Mean Platelet Volume 9.7 fl (7.4-10.4); Monocytes Absolute Auto 0.3 K/mm3 (0.1-0.6); Monocytes Percent Auto 4.6 % (2.6-8.5); Neutrophils Absolute Auto 4.8 K/mm3 (1.3-6.7); Neutrophils Percent Auto 65.5 % (45.5-73.1); Platelet Count Result 349 k/mm3 (150-375); Red Blood Count 4.52 M/mm3 (4.2-5.4); Red Cell Distribution Width 14.1 % (11.5-14.5); White Blood Count 7.4 K/mm3 (4.5-10.0)
--- NOTE | 2021-02-12 18:36 | ED.FEMALEGU ---
HPI - Female Genitourinary General Chief complaint: Vaginal Bleeding Stated complaint: VAG BLEED Time Seen by Provider: 02/12/21 18:18 Source: patient Mode of arrival: ambulatory Limitations: no limitations History of Present Illness HPI Narrative: This is a 26-year-old female that presents to the emergency department for abnormal uterine bleeding. Reports she was seen by her Runner Out and had an IUD placed about a week and a half ago. Reports she has been bleeding since that time. Reports over the last 2 days it has been heavy. She called her principal cyber engineer yesterday because she felt like her IUD was coming out and he had her pull it the rest of the way out. She reports since then she has been having some pelvic cramping. Denies fever, vomiting, or dysuria. Related Data Home Medications Medication Instructions Recorded Confirmed furosemide 40 mg PO DAILY 06/25/20 02/12/21 Allergies Allergy/AdvReac Type Severity Reaction Status Date / Time No Known Allergies Allergy Unknown Verified 02/12/21 18:40 Review of Systems Review of Systems: Narrative: CONSTITUTIONAL: Denies fever GASTROINTESTINAL: Report abdominal pain, nausea. Denies vomiting GENITOURINARY: Denies dysuria All systems reviewed & are unremarkable except as noted in HPI and below PMFSH Past Medical History Medical History Anemia Surgical History Surgical History H/O heart surgery Tetralogy of Fallot s/p repair Family History Family History Sibling Congestive heart failure Mother Diabetes mellitus Grandparent Malignant neoplasm of prostate Grandparent Diabetes mellitus Social History Social History Smoking status: Never smoker Alcohol intake: current Drinks per week: 3 Substance use: never Gender identity (if verbalized by the patient): Female Spiritual care concerns: No Exam Narrative: Exam Narrative: GENERAL: Well-appearing, obese, and in no acute distress. HEAD: Normocephalic, atraumatic. EYES: EOMI. CHEST: Clear to auscultation. No respiratory distress. No wheezes rales or rhonchi HEART: Regular rate and rhythm. No murmur heard. Normal peripheral pulses. ABDOMEN: Soft, nontender, nondistended, normal active bowel sounds. EXTREMITIES: Normal range of motion. No edema. SKIN: Warm, dry, no rash. NEURO: No focal deficits. Alert and oriented x3. PSYCH: Normal mood and affect PELVIC: Normal external genitalia. Normal appearing cervix. Small to moderate amount of dark red blood in the vaginal vault, slowly oozing from cervix Course Consultations Consultation #1: Spoke with Dr. Sorto about patient and workup will follow-up in clinic. Date: 02/12/21 Time: 20:08 Vital Signs Vital signs: Vital Signs Temperature 97.9 F 02/12/21 15:33 Pulse Rate 91 02/12/21 15:33 Respiratory Rate 20 02/12/21 15:33 Blood Pressure 153/87 H 02/12/21 15:33 Pulse Oximetry 99 02/12/21 15:33 Temperature 97.9 F 02/12/21 15:33 Pulse Rate 87 02/12/21 18:42 Respiratory Rate 20 02/12/21 15:33 Blood Pressure 142/84 H 02/12/21 18:42 Pulse Oximetry 99 02/12/21 15:33 MDM - Female Genitourinary MDM Narrative Medical decision making narrative: Patient presents to the emergency department for abnormal uterine bleeding. Her vitals are stable. Hemoglobin is normal. Bedside test is negative. Small to moderate amount of dark red blood in the vaginal vault on exam. Patient had an IUD placed 2 weeks ago. Reportedly this was falling out, so her OB instructed her to take it out. Patient does report she took the IUD out without problems. No strings are noted on exam. Cervix appears normal. Spoke with Dr. Sorto about patient and workup will follow-up in clinic. Patient is stable and felt appropriate fo
[2021-02-12 18:40] VITALS: BP 132/75; PULSE 74
[2021-02-12 18:42] VITALS: BP 142/84; BP 145/83; PULSE 77; PULSE 87
[2021-02-12 18:55] LABS: Alanine Aminotransferase 18 U/L (4-35); Albumin Level 4.3 g/dL (3.5-5.1); Alkaline Phosphatase 109 U/L (38-126); Anion Gap 9 mmol/L (8-16); Aspartate Amino Transferase 35 U/L (14-36); Bilirubin,Total 0.5 mg/dL (0.2-1.3); Blood Urea Nitrogen 7 mg/dL (7-17); Calcium 9.1 mg/dL (8.4-10.2); Carbon Dioxide 27 mmol/L (22-30); Chloride 103 mmol/L (98-107); Estimated CRCL calculation 231 ml/min; Estimated Glomerular Filt Rate > 60; Glucose 129 mg/dL (65-110); Lipase 38 U/L (23-300); Potassium 3.6 mmol/L (3.4-5.0); Sodium 139 mmol/L (137-145)
[2021-02-12 20:39] VITALS: BP 141/82; PULSE 74; RESP 20; O2SAT 98
== END 2021-02-12 20:41 | disposition home or self-care (01) ==
PROVIDERS: Physician Assistant; Emergency Provider Emergency Medicine; PCP Emergency Medicine
DX: N93.9 Abnormal uterine and vaginal bleeding, unspecified (principal); Z86.2 Personal history of diseases of the blood and blood-forming organs and certain disorders involving the immune mechanism
CPT/HCPCS: 36415; 80053; 81025; 83690; 85025; 86850; 86900; 86901; 99284

== ENCOUNTER 2021-07-26 18:28 | Emergency (ER) | payer OTHER, SELFPAY ==
[2021-07-26 19:29] VITALS: BP 133/73; PULSE 87; RESP 16; TEMP 37.3; O2SAT 100
--- NOTE | 2021-07-26 19:50 | ED.EAR ---
HPI - Ear Problem General Chief complaint: Upper Respiratory Infection Stated complaint: carcamo/cp/sob/congestion Time Seen by Provider: 07/26/21 19:50 Source: patient Mode of arrival: ambulatory Limitations: no limitations History of Present Illness HPI Narrative: Saurav Helms is 26-year-old female with complaints of shortness of breath and congestion-Covid both PCR and rapid yesterday and states that she still has some congestion and ear pain so came here for evaluation Related Data Allergies Allergy/AdvReac Type Severity Reaction Status Date / Time No Known Allergies Allergy Unknown Verified 02/12/21 18:40 Review of Systems Review of Systems: CONSTITUTIONAL: Denies fever, chills, sweats. EYES: Denies visual changes, redness, discharge. ENT: Denies rhinorrhea, has congestion, sore throat, has otalgia. CARDIOVASCULAR: Denies chest pain, palpitations, edema. RESPIRATORY: Denies dyspnea, wheezing, cough GASTROINTESTINAL: Denies abdominal pain, nausea, vomiting, diarrhea. GENITOURINARY: Denies dysuria, hematuria, abnormal discharge SKIN: Denies rash or itching. NEUROLOGIC: Denies numbness, or focal weakness. PSYCHIATRIC: Denies anxiety or depression. PMFSH Past Medical History Medical History Anemia Surgical History Surgical History H/O heart surgery Tetralogy of Fallot s/p repair Family History Family History Sibling Congestive heart failure Mother Diabetes mellitus Grandparent Malignant neoplasm of prostate Grandparent Diabetes mellitus Social History Social History Smoking status: Never smoker Alcohol intake: current Drinks per week: 3 Substance use: never Gender identity (if verbalized by the patient): Female Spiritual care concerns: No Comments At time of signature, I agree with nursing past medical, surgical, social and family history. There is no relevant family history pertinent to the presenting complaint. Exam Narrative: GENERAL: This is a well-nourished, well-developed patient, in mild distress. HEAD: normocephalic, atraumatic. EYES:. Sclera clear/white. Vision is grossly intact. EARS: External ears normal, auditory canals erythema and without drainage, TMs normal without perforation. Hearing grossly intact. NOSE: External nose normal without nasal discharge, nares without redness, no rhinorrhea. THROAT: Mucous membranes moist, posterior pharynx mild erythema NECK: Neck supple, non-tender CARDIOVASCULAR: Regular rate and rhythm without murmurs, gallops, or rubs. RESPIRATORY: Clear to auscultation. Breath sounds equal bilaterally. No wheezes, rales, or rhonchi. GASTROINTESTINAL: Abdomen soft, non-tender, SKIN: warm, intact with no suspicious lesions or rash, good texture and turgor. NEURO: awake, alert, and oriented to person, place and time. There were no obvious focal neurologic abnormalities. Steady gait EXTREMITIES: Normal range of motion. BACK: Nontender without deformity Course Course Level of Care: Express Care Visit Vital Signs Vital signs: Vital Signs Temperature 99.2 F 07/26/21 19:29 Pulse Rate 87 07/26/21 19:29 Respiratory Rate 16 07/26/21 19:29 Blood Pressure 133/73 07/26/21 19:29 Pulse Oximetry 100 07/26/21 19:29 Temperature 99.2 F 07/26/21 19:29 Pulse Rate 87 07/26/21 19:29 Respiratory Rate 16 07/26/21 19:29 Blood Pressure 133/73 07/26/21 19:29 Pulse Oximetry 100 07/26/21 19:29 Medical Decision Making Differential Diagnosis Differential Diagnosis: Covid versus pharyngitis versus ear infection versus viral syndrome Vital Signs Vital Signs: Vital Signs Temperature 99.2 F 07/26/21 19:29 Pulse Rate 87 07/26/21 19:29 Respiratory Rate 16 07/26/21 19:29 Blood Pressure 133/73 07/26/21 19:2
== END 2021-07-26 20:15 | disposition home or self-care (01) ==
PROVIDERS: Emergency Provider Nurse Practitioner; PCP Emergency Medicine
DX: H92.03 Otalgia, bilateral (principal); Z20.822 Contact with and (suspected) exposure to COVID-19
CPT/HCPCS: 99213; G0463

== ENCOUNTER 2023-02-03 06:04 | Emergency (ER) | payer OTHER, SELFPAY ==
--- NOTE | ~2023-02-03 | XR_ITS ---
XR knee RT 3V DATE: 02/03/2023 07:39 INDICATION: Right knee pain radiating down leg into the foot TECHNIQUE: [place], AP and crosstable lateral views COMPARISON: None FINDINGS: There is lateral subluxation and mild osteoarthritic change at the patellofemoral joint. Me dial and lateral compartment joint spaces are well preserved. No fracture or dislocation or joint effusion. No periosteal reaction or bone destruction. There is enthesopathy of the patella at the quadriceps and to a lesser extent patellar tendon inserti on sites. IMPRESSION: Mild lateral subluxation and mild osteoarthritic change at the patellofemoral joint Reviewed, dictated and finalized at location A. IMPRESSION: Mild lateral subluxation and mild osteoarthritic change at the erickson llofemoral joint
[2023-02-03 06:05] VITALS: BP 144/72; PULSE 98; RESP 18; TEMP 36.3; O2SAT 98
[2023-02-03] MEDS: NAPROXEN 250 MG TABLET 500 MG PO (07:39)
--- NOTE | 2023-02-03 08:34 | ED.EXTPRO ---
HPI - Extremity Problem General Chief complaint: Extremity Problem,Nontraumatic Stated complaint: R knee pain Time Seen by Provider: 02/03/23 07:01 History of Present Illness HPI Narrative: Patient is a 28-year-old female who presents ER with right knee pain. Began last night. A no known injury but reports she works at [employer] and does a lot of a lot of walking. She has no swelling. No numbness or tingling. Symptoms are worse with walking and radiates up the leg as well as down her leg. No swelling to the knee. Cannot identify alleviating factors other than rest. Related Data Allergies Allergy/AdvReac Type Severity Reaction Status Date / Time No Known Allergies Allergy Unknown Verified 02/03/23 06:26 Review of Systems Musculoskeletal: Musculoskeletal: Denies back pain, Reports arthralgias, Denies joint swelling and Denies muscle cramps Integumentary/Breasts: Skin/Breast: Denies erythema and Denies rash Neurologic: Denies focal weakness, Denies numbness and Denies weakness PMFSH Past Medical History Medical History Anemia Surgical History Surgical History H/O heart surgery Tetralogy of Fallot s/p repair Family History Family History Sibling Congestive heart failure Mother Diabetes mellitus Grandparent Malignant neoplasm of prostate Grandparent Diabetes mellitus Social History Social History Smoking status: Never smoker Alcohol intake: current Drinks per week: 3 Substance use: never Living arrangements: with family Gender identity (if verbalized by the patient): Female Spiritual care concerns: No Exam Narrative: GENERAL: Well-appearing, morbidly obese, and in no acute distress. HEAD: Normocephalic, atraumatic. ENT: Mucous membranes moist. NECK: Supple. CHEST: Clear to auscultation. No respiratory distress. HEART: Regular rate and rhythm. Normal peripheral pulses. EXTREMITIES: Focused exam of the right lower extremity reveals no anterior joint line tenderness or knee effusion. She has full range of motion both active and passive. Minimal crepitus at the knee. SKIN: Warm, dry, no rash. NEURO: Alert and oriented x3. PSYCH: Normal mood and affect. Course Course Emergency Course: Patient resting comfortably. Educated on patellar subluxation. This is considered degenerative. Recommend follow-up with PCP and physical therapy for strengthening. We will also place on anti-inflammatories, patient's body habitus too large from the immobilizer so she was given an Ignacio wrap. Vital Signs Vital signs: Vital Signs Temperature 97.4 F L 02/03/23 06:05 Pulse Rate 98 02/03/23 06:05 Respiratory Rate 18 02/03/23 06:05 Blood Pressure 144/72 H 02/03/23 06:05 Pulse Oximetry 98 02/03/23 06:05 Oxygen Delivery Room Air 02/03/23 06:05 Temperature 97.4 F L 02/03/23 06:05 Pulse Rate 98 02/03/23 06:05 Respiratory Rate 18 02/03/23 06:05 Blood Pressure 144/72 H 02/03/23 06:05 Pulse Oximetry 98 02/03/23 06:05 Oxygen Delivery Room Air 02/03/23 06:05 MDM - Extremity (Nontraumatic) Imaging Data Radiologist's impression: ITS Impressions Knee X-Ray 02/03/23 08:26 IMPRESSION: Mild lateral subluxation and 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 This is likely causing your pain. We will need to perform strengthening exercises and making physical therapy. Follow-up with your primary care p
== END 2023-02-03 09:10 | disposition home or self-care (01) ==
PROVIDERS: Emergency Provider Emergency Medicine
DX: M24.3 Pathological dislocation of joint, not elsewhere classified (principal); Z86.2 Personal history of diseases of the blood and blood-forming organs and certain disorders involving the immune mechanism
CPT/HCPCS: 73562; 99283; A9270

== ENCOUNTER 2024-08-12 19:50 | Emergency (ER) | payer OTHER, SELFPAY ==
[2024-08-12 19:54] VITALS: BP 146/65; PULSE 80; RESP 16; TEMP 36.3; O2SAT 100
[2024-08-12 20:03] VITALS: O2SAT 100
--- NOTE | 2024-08-12 20:14 | ED.GENADULT ---
HPI - General Adult General Chief complaint: Upper Respiratory Infection Stated complaint: Flu like S/Sx--diarrhea/Abd pain today Time Seen by Provider: 08/12/24 20:06 History of Present Illness HPI narrative: Patient is a 29-year-old female who presents emergency department chief complaint of upper respiratory symptoms and diarrhea. The patient reports that she was seen at [place] about a week ago diagnosed with an upper respiratory infection given allergy medications reports that improved and then started having headache nausea abdominal cramping with diarrhea the patient reports she has had some sneezing and coughing as well reports a nonproductive sputum. Related Data Allergies Allergy/AdvReac Type Severity Reaction Status Date / Time No Known Allergies Allergy Unknown Verified 08/12/24 19:52 Review of Systems Review of Systems: A 10 system review of systems was completed on the patient and is negative except for what is stated in the HPI. Nursing and ancillary documentation was reviewed. PMFSH Past Medical History Medical History Anemia Surgical History Surgical History Tetralogy of Fallot s/p repair H/O heart surgery Family History Family History Sibling Congestive heart failure Mother Diabetes mellitus Grandparent Malignant neoplasm of prostate Grandparent Diabetes mellitus Social History Social History Smoking status: Never smoker Alcohol intake: current Drinks per week: 3 Substance use: never Living arrangements: with family Gender identity (if verbalized by the patient): Female Spiritual care concerns: No Exam Narrative: GENERAL: Well-appearing, well-nourished, and in no acute distress. HEAD: Normocephalic, atraumatic. EYES: PERRLA and EOMI. ENT: Nares clear, no rhinorrhea or epistaxis. Mucous membranes moist. NECK: Supple. CHEST: Clear to auscultation. No respiratory distress. HEART: Regular rate and rhythm. No murmur heard. Normal peripheral pulses. ABDOMEN: Soft, nontender, nondistended, normal active bowel sounds. EXTREMITIES: Normal range of motion. No edema. SKIN: Warm, dry, no rash. NEURO: No focal deficits. Alert and oriented x3. PSYCH: Normal mood and affect. Course Course Emergency Course: Differential diagnosis includes influenza, upper respiratory infection, gastroenteritis Patient was positive for influenza The patient is able tolerate p.o. intake patient discharged home prescription for Zofran patient's symptoms started last week therefore Tamiflu would not be beneficial at this point Vital Signs Vital signs: Vital Signs Temperature 36.3 C L 08/12/24 19:54 Pulse Rate 80 08/12/24 19:54 Respiratory Rate 16 08/12/24 19:54 Blood Pressure 146/65 H 08/12/24 19:54 Pulse Oximetry 100 08/12/24 19:54 Oxygen Delivery Room Air 08/12/24 19:54 Temperature 36.3 C L 08/12/24 19:54 Pulse Rate 80 08/12/24 19:54 Respiratory Rate 16 08/12/24 19:54 Blood Pressure 146/65 H 08/12/24 19:54 Pulse Oximetry 100 08/12/24 20:03 Oxygen Delivery Room Air 08/12/24 20:03 Medical Decision Making Vital Signs Vital Signs: Vital Signs Temperature 36.3 C L 08/12/24 19:54 Pulse Rate 80 08/12/24 19:54 Respiratory Rate 16 08/12/24 19:54 Blood Pressure 146/65 H 08/12/24 19:54 Pulse Oximetry 100 08/12/24 19:54 Oxygen Delivery Room Air 08/12/24 19:54 Temperature 36.3 C L 08/12/24 19:54 Pulse Rate 80 08/12/24 19:54 Respiratory Rate 16 08/12/24 19:54 Blood Pressure 146/65 H 08/12/24 19:54 Pulse Oximetry 100 08/12/24 20:03 Oxygen Delivery Room Air 08/12/24 20:03 Lab Data Labs: Lab Results 08/12/24 Range/Units 20:06 Influenza A (RT-PCR) Positive A (Negative) Influenza B (RT-PCR) Negative (Negative) RSV (RT-PCR) Negative (Negative) SARS-CoV-2 RNA (RT-PCR) Negative (Negative) Discharge Plan Discharge Clinical Impression: Influenza A Patient Disposition: Home, Self-Care Condition: Stable Instructions: Antibiotic Form, Influenza (ED) Patient Language: Vietnamese Prescriptions: New ondansetron 4 mg tablet,disintegrating 4 mg PO Q8H PRN (Reason: nausea and vomiting) Qty: 10 0RF No Action [id number] 3.5-10,000-1 mg/mL-unit/mL-% drops,suspension 4 drp EACH EAR Q8H 10 Days Qty: 10 0RF ibuprofen 800 mg tablet 800 mg PO TID PRN (Reason: pain) Qty: 30 0RF benzonatate 100 mg capsule 100 mg PO TID PRN (Reason: cough) Qty: 30 0RF ferrous sulfate 325 mg (65 mg iron) tablet,delayed release (DR/EC) 325 mg PO BID Qty: 60 3RF naproxen 500 mg tablet 500 mg PO BID Qty: 14 0RF Follow-up/Referrals: PHYSICIAN NOT ON STAFF,NONSTAFF [Primary Care Provider] - Stand Alone Forms: Work/School Release IP Time of Disposition: 20:58
[2024-08-12] MEDS: ONDANSETRON HCL ODT 4 MG TABLET PO (20:23)
[2024-08-12 20:46] LABS: Influenza A QL RT-PCR Positive (Negative); Influenza B QL RT-PCR Negative (Negative); RSV RNA, RT-PCR Negative (Negative); SARS-CoV-2 RNA PCR Negative (Negative)
[2024-08-12 21:04] VITALS: BP 142/80; PULSE 75; RESP 16; O2SAT 98
--- OUTSIDE RECORDS SUMMARY | 2024-08-14 03:39 | XMS_ITS | Data Portability ---
Author Organization [facility] [place] Address [address] [place] [address] Care Team Providers Care Debeaker Name Role Phone MARIANN BAUTISTA Primary Care Provider [phone] Assessment Encounter Date Assessment Date Assessment LastModified by Organization Details LastModified Time 01/09/2023 01/09/2023 The patient and I disscussed the various causes of abnormal uterine bleeding, including polyps, fibroids, hyperplasia, atypia, anovulation, etc. We reviewed the typical evaluation with labs, pelvic US and possible endometrial biopsy. Briefly discussed the options available for treatment (depending on the results of evaluation) such as hormonal treatment (OCPs, progestins), Mirena, endometrial ablation, and surgery. We spent more than 30 minutes face to face. [email or web address] Not available 01/09/2023 15:04:31 Plan of Treatment Reminders Order Date Submit Date Provider Last Modified By Organization Details Last Modified Time Details Appointments None recorded . Lab HbA1c (hemoglo bin A1c), blood 2022 023 [facility] (Lab), [address], [place], [address], 3 05:12:41 prolacti n, serum 2022 023 [facility] (Lab), [address], [place], [address], 3 05:12:41 TSH, serum or plasma 2022 023 [facility] (Lab), [address], [place], [address], 3 05:12:42 CBC w/ auto diff 2022 023 [facility] (Lab), [address], [place], [address], 3 05:12:40 pregnanc y test, urine 2022 023 [facility], [facility] [address], [place], [address], 3 12:39:22 Referral None recorded . Procedures None recorded . Surgeries None recorded . Imaging US, transvag inal [address], [address], [address], [place], [address], 1 18:50:44 US, pelvis, complete 2022 023 [facility], [address], [place], [address], 3 17:58:22 US, pelvis [address], [address], [place], [address], 3 19:01:04 US, transvag inal 20[address], [address], [place], [address], 3 19:01:04 Medication Orders None recorded . Patient TargetsNo targets recorded. Patient InstructionsNo instructions recorded. Reason for Referral None Reported. Results Created Date Observation Date Name Description Value Unit Range Abnormal Flag Note LastModifiedBy Organization Detail LastModifiedTime 01/21/2001/20/2021 CT/GC AND TRICH OMONA S VAGIN AVERY (RRNA ), URINE chlamydia trachomatis, PCR Negati ve negati ve Not Available [facility] (Lab) [address] [facility], [place], [address], 01/21/2021 15:08:36 01/21/20 21 01/20/2021 CT/GC AND TRICH OMONA S VAGIN AVERY (RRNA ), URINE neisseria gonorrhoeae, PCR Negati ve negati ve Not Available [facility] (Lab) [address] [facility], [place], [address], 01/21/2021 15:08:36 01/21/20 21 01/20/2021 CT/GC AND TRICH OMONA S VAGIN AVERY (RRNA ), URINE trichomonas vaginalis ribosomal RNA (rrna) Negati ve negati ve Not Available [facility] (Lab) [address] [facility], [place], [address], 01/21/2021 15:08:36 01/21/20 21 01/20/2021 pregn makenzie test, urine HCG negati ve Not Available [place] [address], [place], [address], 01/20/2021 09:56:53 01/10/20 23 01/09/2023 CBC W/DIF F WBC 7.5 10'3/ uL 3.6-[address] [facility] (Lab) [address] [facility], [place], [address], 01/10/2023 05:12:40 01/10/20 23 01/09/2023 CBC W/DIF F RBC 3.92 10'6/ uL (based on docume nted legal sex) 4.10-5 [address] [facility] (Lab) [address] [facility], [place], [address], 01/10/2023 05:12:40 01/10/20 23 01/09/2023 CBC W/DIF F HGB 8.8 g/dL (based on docume nted legal sex) 11.9-1 [address] [facility] (Lab) [address], [place], [address], 01/10/2023 05:12:40 01/10/20 23 01/09/2023 CBC W/DIF F HCT 29.8 % (based on docume nted legal sex) 37.4-4 [address] [facility] (Lab) [address], [place], [address], 01/10/2023 05:12:40 01/10/20 23 01/09/2023 CBC W/DIF F MCV 76.0 fL 82.0-9 [address] [facility] (Lab) [address], [place], [address], 01/10/2023 05:12:40 01/10/20 23 01/09/2023 CBC W/DIF F MCH 22.4 pg 27.0-3 [address] [facility] (Lab) [address], [place], [address], 01/10/2023 05:12:40 01/10/20 23 01/09/2023 CBC W/DIF F MCHC 29.5 g/dL 32.0-3 [address] [facility] (Lab) [address], [place], [address], 01/10/2023 05:12:40 01/10/20 23 01/09/2023 CBC W/DIF F RDW 17.0 % 11.0-1 [address] [facility] (Lab) [address] [place], [address], 01/10/2023 05:12:40 01/10/20 23 01/09/2023 CBC W/DIF F plt 369 10'3/ uL 150-[address] [facility] (Lab) [address] [place], [address], 01/10/2023 05:12:40 01/10/20 23 01/09/2023 CBC W/DIF F MPV 10.3 fL 9.8-[address] [facility] (Lab) [address], [place], [address], 01/10/2023 05:12:40 01/10/20 23 01/09/2023 CBC W/DIF F NRBC's 0.0 % [address] [facility] (Lab) [address], [place], [address], 01/10/2023 05:12:40 01/10/20 23 01/09/2023 CBC W/DIF F absolute NRBCs 0.0 10'3/ uL [address] [facility] (Lab) [address], [place], [address], 01/10/2023 05:12:40 01/10/20 23 01/09/2023 CBC W/DIF F neutrophils 65.8 % 37.0-[address] [facility] (Lab) [address], [place], [address], 01/10/2023 05:12:40 01/10/20 23 01/09/2023 CBC W/DIF F lymphocytes 25.0 % 16.0-[address] [facility] (Lab) [address], [place], [address], 01/10/2023 05:12:40 01/10/20 23 01/09/2023 CBC W/DIF F monocytes 5.7 % 4.0-[address] [facility] (Lab) [address], [place], [address], 01/10/2023 05:12:40 01/10/20 23 01/09/2023 CBC W/DIF F eosinophils 2.3 % 0.0-9. [address] [facility] (Lab) [address], [place], [address], 01/10/2023 05:12:40 01/10/20 23 01/09/2023 CBC W/DIF F basophils 0.7 % 0.0-2. [address] [facility] (Lab) [address] [facility], [place], [address], 01/10/2023 05:12:40 01/10/20 23 01/09/2023 CBC W/DIF F immature granulocytes 0.5 % no define d refere nce range Not Available [facility] (Lab) [address] [facility], [place], [address], 01/10/2023 05:12:40 01/10/20 23 01/09/2023 CBC W/DIF F absolute neutrophils 5.0 10'3/ uL 1.1-6. [address] [facility] (Lab) [address] [place], [address], 01/10/2023 05:12:40 01/10/20 23 01/09/2023 CBC W/DIF F absolute lymphocytes 1.9 10'3/ uL 0.7-3. [address] [facility] (Lab) [address] [place], [address], 01/10/2023 05:12:40 01/10/20 23 01/09/2023 CBC W/DIF F absolute monocytes 0.4 10'3/ uL 0.3-1. [address] [facility] (Lab) [address] [place], [address], 01/10/2023 05:12:40 01/10/20 23 01/09/2023 CBC W/DIF F absolute eosinophils 0.2 10'3/ uL 0.0-0. [address] [facility] (Lab) [address] [place], [address], 01/10/2023 05:12:40 01/10/20 23 01/09/2023 CBC W/DIF F absolute basophils 0.1 10'3/ uL 0.0-0. [address] [facility] (Lab) [address] [facility], [place], [address], 01/10/2023 05:12:40 01/10/20 23 01/09/2023 CBC W/DIF F absolute immature granulocytes 0.0 10'3/ uL 0.00-0 .10 2022 1:26 AM: P indic ates parti al resul ts on a panel have been relea sed. Addit ional resul ts will follo w. 2022 1:26 AM: This resul t has been final verif ied. No addit ional or westfall ed resul ts are expec chao. Not Available [facility] (Lab) [address] [facility], [place], [address], 01/10/2023 05:12:40 01/10/20 23 01/09/2023 HEMOG LOBIN A1C hemoglobin A1C 5.9 % 0-5.6 high The Ameri can Diabe em Assoc iatio n recom mends that a prima ry goal of thera py shoul d be a HBA1C of < 7% and that physi cians shoul d reeva luate the treat ment regim en in patie nts with HBA1C value s consi stent ly > 8%. <5.7% Mindy l 5.7 - 6.4% Incre ased risk for diabe em >=6.5 % Diagn ostic of diabe em <7.0% Goal of thera py >8.0% Actio n sugge sted Not Available [facility] (Lab) [address] [facility], [place], [address], 01/10/2023 05:12:41 01/10/20 23 01/09/2023 PROLA CTIN prolactin, total 10.90 NG/mL 4.79-2 3.30 This assay was perfo rmed using [employer] ratio n reage nts and test kits. Value s obtai guera with other assay metho ds or kits canno t be used inter westfall eably . Not Available [facility] (Lab) [address], [place], [address], 01/10/2023 05:12:41 01/10/20 23 01/09/2023 TSH, REFLE X FREE T4 TSH 2.65 uIU/m L 0.30-[address] [facility] (Lab) [address], [place], [address], 01/10/2023 05:12:41 01/10/20 23 01/09/2023 pregn makenzie test, urine HCG negati ve Not Available [place] [address], [place], [address], 01/09/2023 12:39:04 02/10/20 21 02/09/2021 US, trans vagin al No observ ation record ed. [email or web address] [place] [address], [place], [address], 02/09/2021 15:11:18 02/10/20 21 02/09/2021 US, trans vagin al No observ ation record ed. [email or web address] [address], [place], [address], 02/13/2021 15:27:28 01/15/20 23 01/14/2023 US, pelvi s No observ ation record ed. [email or web address] [place] [address], [place], [address], 01/14/2023 12:29:40 01/15/20 23 01/14/2023 US, trans vagin al No observ ation record ed. [email or web address] [place] [address], [place], [address], 01/14/2023 12:29:30 01/15/20 23 01/14/2023 US, pelvi s No observ ation record ed. [address], [place], [address], 02/06/2023 12:21:06 Result Notes None recorded. 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 0 10:30:55 Clinical finding Completed 201809/28/2020 Encounte r for surveill ance of injectab le contrace ptive;Re corded Elsewher e: No Locat ion: [facility] S ource: EHR Mental Health Clinician fabi: N Practi ce ID: 0001 Mateus lable Time: 08:45:00 AM [facility] 14:42:46 Educatio n Completed 201909/28/2020 Encounte r for other general counseli ng and advice on contrace ption;Re corded Elsewher e: No Locat ion: [facility] S ource: EHR Mental Health Clinician fabi: N Practi ce ID: 0001 Mateus lable Time: 10:15:00 AM [facility] 14:42:44 Elevated blood-pr essure reading without diagnosi s of hyperten candida [id number] Active 2019 Elevated blood-pr essure reading without diagnosi s of HTN;Josh rded Elsewher e: No Locat ion: [facility] S ource: EHR Mental Health Clinician fabi: N Practi ce ID: 0001 Mateus lable Time: 10:15:00 AM Not Available [facility] 0 21:23:[address] Concept Completed 201909/28/2020 Encntr for general adult medical exam w/o abnormal findings ;Recorde d Elsewher e: No Locat ion: [facility] S ource: EHR Mental Health Clinician fabi: N Practi ce ID: 0001 Mateus lable Time: 10:15:00 AM Melisa shepherd [facility] 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 14:42:55 Furuncle [id number] Completed 201709/28/2020 Boil;Rec orded Elsewher e: No Locat ion: [facility] S ource: EHR Mental Health Clinician fabi: N Practi ce ID: 0001 Mateus lable Time: 10:45:00 AM Melisarena Boyd [facility] 14:42:51 Problem Notes None recorded. Procedures Surgical History Date Name Laterality Status Provider Name and Address Organization Details Recorded Time 01/21/20 21 IUD Insertion completed Gómez Sorto MD [address], [place], [address], [facility] 01/20/2021 10:49:13 10/27/19 21 HYSTEROSCOPY, SURGICAL, WITH BIOPSY OF ENDOMETRIUM AND/OR POLYPECTOMY (SURG) completed Felipa Lyles [facility] 10/27/2020 11:19:00 06/09/20 20 Hysteroscopy completed Gómez Sorto MD [address], [place], [address], [facility] 06/09/2020 13:56:15 09/09/19 20 Date of Last Pap Smear completed Melisa Boyd [facility] 05/25/2020 09:34:13 repair of tetralogy of Fallot completed KEITH Carrizales [address], [place], [address], [facility] 01/09/2023 12:32:31 Imaging Results Imaging Date Name Status LastModified by Organization Details LastModified Time 02/09/2021 US, transvaginal completed [email or web address] [place] [address], [place], [address], 02/09/2021 15:11:18 02/09/2021 US, transvaginal completed aruehrup [address], [place], [address], 02/13/2021 15:27:28 01/14/2023 US, pelvis completed [email or web address] [place] [address], [place], [address], 01/14/2023 12:29:40 01/14/2023 US, transvaginal completed [email or web address] [place] [address], [place], [address], 01/14/2023 12:29:30 01/14/2023 US, pelvis completed [address], [place], [address], 02/06/2023 12:21:06 Procedure Notes None recorded. Medical Equipment None Reported. Allergies No known drug allergies Medications Name Sig Start Date Stop Date Status Note LastModified by Organization Details LastModified Time furosemid e 40 mg tablet TAKE 1 TABLET BY MOUTH EVERY DAY 01/09 completed Not Available Not Available Not Available Mirena 21 mcg/24 hr (up to 8 years) 52 mg intrauter ine device Take 1 device by intraute rine route. 02/16 completed Not Available Not Available Not Available promethaz ine-DM 6.25 mg-15 mg/5 mL oral syrup 11/23 completed Not Available Not Available Not Available ibuprofen 800 mg tablet Take 1 tablet 2 hours before the procedur e. 06/22 completed Not Available Not Available Not Available ondansetr on HCl 8 mg tablet TK 1 T PO 2 HOURS BEFORE THE PROCEDUR E 06/22 completed Not Available Not Available Not Available hydrocodo ne 10 mg-acetam inophen 325 mg tablet Take 1 tablet 2 hours before the procedur e. 06/22 completed Not Available Not Available Not Available doxycycli ne monohydra te 100 mg tablet TAKE 1 TABLET BY MOUTH TWICE DAILY active Not Available Not Available No t Available meloxicam 7.5 mg tablet 05/25 completed Not Available Not Available Not Available alprazola m 0.5 mg tablet Take 1 tablet 2 hours before the procedur e. 06/22 completed Not Available Not Available Not Available apple cider vinegar 600 mg capsule 11/14 completed Prescrib ed Elsewher e: Yes Loca tion: [facility] odify By: stevie jones DateTime : 09/09/19 10:15:00 AM Not Available Not Available Not Available cephalexi n 500 mg capsule 11/23 completed Not Available Not Available Not Available ferrous sulfate 325 mg (65 mg iron) tablet TK 1 T PO BID FOR ANEMIA active Not Available Not Available No t Available prednison e 50 mg tablet 11/23 completed Not Available Not Available Not Available ergocalci ferol (vitamin D2) 1,250 mcg (50,000 unit) capsule 11/23 completed Not Available Not Available Not Available albuterol sulfate HFA 90 mcg/actua tion aerosol inhaler INHALE 2 PUFFS BY MOUTH EVERY 4-6 HOURS NEEDED FOR WHEEZING / SHORTNES S OF BREATH active Not Available Not Available No t Available norethind clare (contrace ptive) 0.35 mg tablet TAKE 1 TABLET BY MOUTH EVERY DAY active Not Available Not Available No t Available fluticaso ne propionat e 50 mcg/actua tion nasal spray,jordi pension SHAKE LIQUID AND USE 1 SPRAY IN EACH NOSTRIL TWICE DAILY 02/16 completed Not Available Not Available Not Available medroxypr ogesteron e 150 mg/mL intramusc ular suspensio n INJECT 1 MILLILIT ER BY INTRAMUS CULAR ROUTE EVERY 3 MONTHS 11/23 completed Not Available Not Available Not Available doxycycli ne hyclate 100 mg tablet TK 1 T PO BID 06/22 completed Not Available Not Available Not Available naproxen 500 mg tablet TAKE 1 TABLET BY MOUTH TWICE DAILY active Not Available Not Available No t Available amoxicill in 875 mg-potass ium clavulana te 125 mg tablet TAKE 1 TABLET BY MOUTH TWICE DAILY 02/16 completed Not Available Not Available Not Available Bactrim DS 800 mg-160 mg tablet take 1 tablet by oral route every 12 hours for 10 days 01/03 completed Prescrib ed Elsewher e: No Locat ion: [facility] odify By: haydee staley DateTime : 12/26/19 18 10:45:00 AM Not Available Not Available Not Available nitrofura ntoin monohydra te/macroc rystals 100 mg capsule 01/09 completed Not Available Not Available Not Available ferrous sulfate 15 mg iron (75 mg)/mL oral drops 11/14 completed Prescrib ed Elsewher e: Yes Loca tion: [facility] odify By: carol jones DateTime : 12/26/19 18 10:45:00 AM Not Available Not Available Not Available tranexami c acid 650 mg tablet 01/09 completed Not Available Not Available Not Available Slynd 4 mg (28) tablet Take 1 tablet every day by oral route for 90 days. 11/14 completed Not Available Not Available Not Available Slynd 05/25 completed Not Available Not Available Not Available Vitals Date Recorded Body height Body mass index (BMI) Body weight Systolic blood pressure Diastolic blood pressure Provider Name and Address Organization Details Last Updated DateTime 02/16/2021 167.64 cm 57.8 kg/m2 247659.0 7 g 147 mm[Hg] 87 mm[Hg] Melisa Deb [facility] 1 09:40:08 Date Recorded Body height Body mass index (BMI) Body weight Systolic blood pressure Diastolic blood pressure Provider Name and Address Organization Details Last Updated DateTime 01/09/2023 167.64 cm 57.8 kg/m2 925051.0 7 g 108 mm[Hg] 70 mm[Hg] Negar Carlson [facility] 3 12:05:20 Date Recorded Body height Body mass index (BMI) Body weight Systolic blood pressure Diastolic blood pressure Provider Name and Address Organization Details Last Updated DateTime 02/15/2023 167.64 cm 58.8 kg/m2 141666.6 2 g 126 mm[Hg] 79 mm[Hg] Melisa Boyd [facility] 10:21:51 Social History Question Answer Notes LastModified by Organizat ion Details LastModified Time Tobacco Smoking Status Never Smoker Sav Paty joao [facility] 02/16/2021 09:17:48 Do You Have An Advance Directive? No Information n ot available 09/28/2020 What Is Your Level Of Alcohol Consumption? None Information not available 09/28/2020 How Many Years Have You Consumed Alcohol? 0 Information not available 09/28/2020 Are You Blind Or Do You Have Difficulty Seeing? No Information n ot available 09/28/2020 How Much Tobacco Do You Chew? None Information not available 09/28/2020 In The 14 Days Before Symptom Onset, Have You Had Close Contact With A Laboratory-confirm ed COVID-19 While That Case Was Ill? No Information n ot available 09/28/2020 In The 14 Days Before Symptom Onset, Have You Had Close Contact With A Person Who Is Under Investigation For COVID-19 While That Person Was Ill? No Information not available 09/28/2020 Have You Been To An Area Known To Be High Risk For COVID-19? No Information not available 09/28/2020 Are You Deaf Or Do You Have Serious Difficulty Hearing? No Information not available 09/28/2020 What Type Of Diet Are You Following? REGULAR Information n ot available 09/28/2020 What Is The Highest Grade Or Level Of School You Have Completed Or The Highest Degree You Have Received? 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 No Information not available 09/28/2020 Do You Use Protection During Sex? Always Information not available 09/28/2020 Do You Use Your Seat Belt Or Car Seat Routinely? Yes Information not available 09/28/2020 Do You Have Smoke And Carbon Monoxide Detectors In Your Home? No Information not available 09/28/2020 How Much Tobacco Do You Smoke? No Information not available 09/28/2020 Do You Feel Stressed (tense, Restless, Nervous, Or Anxious, Or Unable To Sleep At Night)? [id number] Information not available 09/28/2020 Do You Use Any Illicit Or Recreational Drugs? No Information not available 09/28/2020 Do You Use Sunscreen Routinely? No Information not available 09/28/2020 Have You Used IV Drugs? No Information not available 09/28/2020 Sex: Unknown Functional Status Question Answer Note LastModified by Organization D etails LastModified Time Are you able to walk? YESWOREST Information not available 09/28/2020 What is your exercise level? None Information not available 09/28/2020 Mental Status None recorded. Family History Relationship Description Onset Age of this Age Resolved Age Notes LastModified by Organization Details LastModified Time Maternal Grandmother Diabetes mellitus [email or web address] Not available 2019 11:43:09 Maternal Grandmother Hypertensive disorder [email or web address] Not available 2019 11:43:24 Maternal Grandfather Hypertensive disorder [email or web address] Not available 2019 11:43:31 Maternal Grandfather Carcinoma in situ of prostate phewitt Not available 2020 09:17:48 Sister Asthma [email or web address] Not available 11:43:51 Medical History Condition Response Heart Problems Y Anemia Y Gynecological History Statement/Question Response Flow Heavy Date of LMP 12/31/2022 On BCP's at [facility]? N N Was last menstrual period normal N STIs/STDs N HPV Vaccine N Duration of Flow (days) 7 Current Control Method None Sexually Active? N Unknown Menses Monthly Y Age of first menstrual cycle 14 Date of Last Pap Smear 09/09/2019 Sexual Problems? N Desired Control Method None LMP Approximate N Obstetrics History GPAL:G 0 P 0 0 0 0 Past Encounters Encounter ID Performer Location Encounter Start Date Encounter Closed Date Diagnosis/Indication Diagnosis SNOMED-CT Code Diagnosis ICD10 Code Diagnosis Note [id number] Gómez Sorto MD [place] [address],[place] [address] 11/09/2019 11:29:04 11/09/2019 12:44:36 Abnormal uterine bleeding [id number] 9100 N93.9 this patient is a 24-year-ol d female with irregular bleeding. She has previously tried progestero ne only pill to control bleeding. It has failed. We talked about options. We spent 15 minutes face-to-fa ce discussing her symptoms and her treatment options. More than 50% of this time was in counseling . We agreed to Nexplanon. We discussed all her options and the risks benefits of each. We agreed that OCPs, patches, ring were not safe enough for her. She will return in a week for Nexplanon insertion. She should be further evaluated for irregular bleeding. [id number] [address],[place] [address] 11/24/2019 11:26:14 11/24/2019 12:34:15 [id number] [address],[place] [address] 11/24/2019 11:53:53 11/24/2019 12:22:49 Pain in pelvis 05098127 R10.2 [id number] Gómez Sorto MD [place] [address],[place] [address] 11/24/2019 12:45:27 11/24/2019 15:18:54 Abnormal uterine bleeding 3110598505 9100 N93.9 Polyp of corpus uteri 11 654625 N84.0 this patient is a 24-year-ol d female with abnormal uterine bleeding, endometria l polyp. We have agreed to perform hysterosco py D& C. We will schedule the hysterosco py D&C. [id number] [facility] [address],[place] [address] 05/25/2020 09:08:36 05/25/2020 11:29:25 Menorrhagia 064595171 N92.0 We reviewed resuming SLYND which she did really well on previously . Agreed to 3mos trial & RTO x 3mos for medication check. LMP 05/23/2020. We agreed to start SLYND. Samples & coupon given. Time spent in visit is a total of 15 mins with at least 50% of visit consisting of counseling and review of plan of care. [id number] Gómez oSrto MD [facility] [place] [address],[place] [address] 05/31/2020 16:42:04 06/01/2020 11:03:23 Preoperative state [id number] Z78.9 this patient is a 25-year-ol d female with abnormal uterine bleeding and endometria l polyp. We have agreed to perform hysterosco py D&C with polypectom y. She understand s risks, benefits, and alternativ es. She has completed the informed consent process is ready to proceed. [id number] Gómez Sorto MD [facility] [place] [address],[place] [address] 06/09/2020 10:40:00 06/09/2020 14:05:44 Pre-surgery evaluation [id number] Z01.818 Abnormal u terine bleeding [id number] 9100 N93.9 there appears to be a submucous myoma or polyp. She may need this to be removed under anesthesia . It was too difficult and too broad-base d to do in the office. The patient is a morbidly obese as well which presented technical challenges . Submucous leiomyoma of uterus [id number] D25.0 [id number] Gómez Sorto MD [place] [address],[facility] [place] [address] 06/15/2020 14:08:09 06/15/2020 15:22:37 Endometritis [id number] N85.00 [id number] Gómez Sorto MD [place] [address],[place] [address] 06/22/2020 11:30:31 06/22/2020 12:19:17 Uterine leiomyoma [id number] D25.9 This patient is a 25-year-ol d female presents for follow-up after a possible endometrit is. She may have had a post hysterosco py endometrit is. She took her antibiotic s and has no symptoms at this time. She has previously reporting some lower abdominal pain. She denies any foul-smell ing vaginal discharge, fever, abdominal pain. She is going to continue to take progestero ne only contracept ion. She has a submucous lesion that is likely a fibroid visible on hysterosco py. We agreed to follow-up on that in 3 months. We discussed fibroid tumors. She return in 3 months. [id number] Gómez Sorto MD [place] [address],[place] [address] 06/30/2020 09:47:34 06/30/2020 10:46:28 Anemia [id number] D64.9 This patient is a 25 year old female with irregular bleeding. She is bed very heavy recently. She bled down to hemoglobin of 4. we have tried to control her bleeding with progestero ne only oral contracept mike pills. This is not worked. She continues to bleed. We agreed to Mirena IUD today. She will return shortly for Mirena IUD insertion. Her mother was here today we answered a lot of questions. We spent more than 15 minutes face-to-fa ce. [id number] Sammie Teague [place] [address],[place] [address] 09/28/2020 13:31:22 09/28/2020 14:34:10 Abnormal uterine bleeding [id number] 9100 N93.9 there appears to be a submucous myoma or polyp. She may need this to be removed under anesthesia . It was too difficult and too broad-base d to do in the office. The patient is a morbidly obese as well which presented technical challenges . [id number] Gómez Sorto MD [place] [address],[place] [address] 09/28/2020 13:31:41 09/28/2020 15:39:49 Polyp of corpus uteri [id number] N84.0 this patient is a 25-year-ol d female presents for follow-up on abnormal bleeding, amenorrhea , endometria l lesion. We reviewed her ultrasound today. There is a persistent endometria l lesion. She was previously scheduled for hysterosco pic evaluation and polypectom y. We need to reschedule her for hysterosco py D&C with polypectom y. Talked about abnormal uterine bleeding and the risk of endometria l cancer. Our ultimate plan is to insert an IUD after removal of the lesion. We talked about the procedure. Talked about the ultrasound results. We reviewed the images together. [id number] Gómez Sorto MD [place] [address],[place] [address] 10/27/2020 10:00:27 10/27/2020 10:01:31 [id number] Gómez Sorto MD [place] [address],[place] [address] 11/14/2020 15:57:16 11/14/2020 16:33:14 Contraception care management [id number] Z30.9 This patient is a 22-year-ol d female presents for postop follow-up. She is recovering normally. We had a hysterosco py D and C with polypectom y. Polyp was removed. Talked about controllin g of her abnormal uterine bleeding. we agreed to Mirena insertion. She will return for Mirena insertion. [id number] Gómez Sorto MD [place] [address],[place] [address] 01/20/2021 09:31:31 01/20/2021 10:53:50 Contraception care management [id number] Z30.9 Mirena inserted without complicati ons. [id number] [facility] [address],[place] [address] 02/09/2021 12:33:45 02/09/2021 14:05:20 Mechanical complication of intrauterine contraceptive device [id number] T83.39XA [id number] Gómez Sorto MD [place] [address],[place] [address] 02/16/2021 09:17:40 02/16/2021 10:01:35 Contraception care management [id number] Z30.9 this patient is a 26-year-ol d female who presents for contracept mike management . She expelled her IUD. She had painful cramping and held in her vagina. We agreed that she needs protection of her endometriu m. We agreed to start a history contracept mike pills. She will try that for 3 months and return to discuss. We spent time counseling on safe contracept ion for her. We spent over 15 minutes face-to-fa ce on this moderately complex topic. [id number] KEITH Carrizales [place] [address],[place] [address] 01/09/2023 11:51:23 01/09/2023 15:23:52 Abnormal uterine bleeding [id number] 9100 N93.9 Discussed need for updated pelvic u/s for further evaluation - orderedlab s orderedcon tinue POP for now, precaution s discussedR TC for MD consult/ u/s f/u Time spent in visit is a total of 30 mins with at least 50% of visit consisting of counseling and review of plan of care. [id number] Sheree Carrero [place] [address],[place] [address] 01/14/2023 11:25:38 01/14/2023 12:02:12 Abnormal uterine bleeding [id number] 9100 N93.9 there appears to be a submucous myoma or polyp. She may need this to be removed under anesthesia . It was too difficult and too broad-base d to do in the office. The patient is a morbidly obese as well which presented technical challenges . [id number] Gómez Sorto MD [place] [address],[place] [address] 02/15/2023 09:59:42 02/15/2023 11:03:10 Lesion of endometrium [id number] 9101 N85.9 this patient is a 28-year-ol d female who presents for follow-up on abnormal uterine bleeding, endometria l lesion, ultrasound , contracept mike management . We talked about her abnormal bleeding. Talked about ways of managing it. She is taking the norethindr one pill. She is not entirely satisfied. She states it makes her feel poorly. Reviewed safe alternativ es to her for managing bleeding. She is going to stay on the norethindr one pill. Talked about her endometria l lesion. She has a history of an endometria l polyp that was removed. She appears to have another endometria l polyp. Talked about management of the polyp in detail. Talked about surgical procedure. Talked about observatio n. Going to continue to observe. She has not have plans to have a baby any time soon. We talked about weight management in detail to. Talked about calorie counting. Talked about making Smart food choices. We talked about various food and calorie consumptio n options. We spent over 40 minutes face-to-fa ce more than 50% was counseling . She is going to return in 6 months for ultrasound and ultrasound follow-up for endometria l lesion. Health Concerns Section Related Observation LastModified by Organization Detai ls LastModified Time None Recorded Concern Status LastModified by Organization Details LastModified Time None Recorded Advance Directives Directive N: Payers Encounter Date Sequence Insurance Name Policy Number Policy Dean Covered Member ID Dean Member ID Guarantor Name 02/09/2021 1 [facility] ON OR AFTER 01/19/21 (MEDICAID REPLACEMENT - HMO) Angela Helms [id number] Angela Helms 02/16/2021 1 [facility] ON OR AFTER 01/19/21 (MEDICAID REPLACEMENT - HMO) Angela Helms [id number] Angela Helms 01/09/2023 1 [facility] ON OR AFTER 01/19/21 (MEDICAID REPLACEMENT - HMO) Angela Helms [id number] Angela Helms 01/14/2023 1 [facility] ON OR AFTER 01/19/21 (MEDICAID REPLACEMENT - HMO) Angela Helms [id number] Angela Helms 02/15/2023 1 [facility] ON OR AFTER 01/19/21 (MEDICAID REPLACEMENT - HMO) Angela Helms [id number] Angela Helms Notes Date Note Type Note Provider Name and Address Organization Details Recorded Time 02/16/2021 text/html this patient is a 26-year-old female who presents for contraceptive management. She expelled her IUD. She had painful cramping and held in her vagina. We agreed that she needs protection of her endometrium. We agreed to start a history contraceptive pills. She will try that for 3 months and return to discuss. We spent time counseling on safe contraception for her. We spent over 15 minutes [id number] on this moderately complex topic. Gómez Sorto MD [address], [place], [address], [facility] 02/16/2021 10:00:49 01/09/2023 text/html 27yo [id number] for evaluation of heavy and painful periodsperiods have been historically heavys/p hysteroscopy D&C with polypectomy in 2020 with IUD insertion, IUD expelled shortly after.started on POP after IUD expelled, has not seen an improvement in flow or painperiods are monthly, lasting 7-8 days, cramping/clots, although reports changing super pads only 3-4 times a dayNever SA - pelvic exams are uncomfortable for her. She is unable to use tamponsdenies any d/c, itching, odors, n/v, or flu-like symptomsno current pain or bleedinglast pap 2019, normal - no hx of abnormal paps KEITH Carrizales [address], [place], [address], [facility] 01/09/2023 15:06:53 02/15/2023 text/html this patient is a 28-year-old female who presents for follow-up on abnormal uterine bleeding, endometrial lesion, ultrasound, contraceptive management. We talked about her abnormal bleeding. Talked about ways of managing it. She is taking the norethindrone pill. She is not entirely satisfied. She states it makes her feel poorly. Reviewed safe alternatives to her for managing bleeding. She is going to stay on the norethindrone pill. Talked about her endometrial lesion. She has a history of an endometrial polyp that was removed. She appears to have another endometrial polyp. Talked about management of the polyp in detail. Talked about surgical procedure. Talked about observation. Going to continue to observe. She has not have plans to have a baby any time soon. We talked about weight management in detail to. Talked about calorie counting. Talked about making Smart food choices. We talked about various food and calorie consumption options. We spent over 40 minutes [id number] more than 50% was counseling. She is going to return in 6 months for ultrasound and ultrasound follow-up for endometrial lesion. Gómez Sorto MD [address], [place], [address], [facility] 02/15/2023 11:01:23 OBGyn Episode No OBEpisode recorded.
--- OUTSIDE RECORDS SUMMARY | 2024-08-14 03:39 | XMS_ITS | Data Portability ---
Author Organization Julito NO Address [address] [facility] [place] [address] Assessment No assessment recorded. Plan of Treatment Reminders Order Date Submit Date Provider Last Modified By Organization Details Last Modified Time Details Appointments None recorded. Lab lipid panel, serum 2021 022 KATE LUIS, Jaspal cielo Miller, [facility] [address], [place], [address], 09:13:21 TSH + free T4, serum 2021 022 KATE LUIS, Jaspal cielo Miller, [address], [place], [address], 09:13:20 iron + total iron-bindin g capacity (TIBC), serum 2021 022 KATE LUIS, Jaspal cielo Miller, [facility] [address], [place], [address], 09:13:22 ferritin, serum or plasma 2021 022 KATE LUIS, Jaspal cielo Miller, [address], [place], [address], 09:13:23 vitamin B12 + folate, serum or blood 2021 022 KATE LUIS, Jaspal cielo Miller, [address], [place], [address], 09:13:23 CBC 2021 022 [facility], [address], [address], [place], [address], 09:13:21 Referral bariatric surgery referral 2021 022 [facility], [address], [address], [place], [address], 12:27:13 Procedures None recorded. Surgeries None recorded. Imaging None recorded. Medication Orders hydrocortis one 2.5 % topical cream 2016 017 [id number], [address] [place], [place], [id number], 11:13:35 Patient TargetsNo targets recorded. Patient Instructions Encounter Date Encounter Id Patient Instructions Last Modified By Organization Details Last Modified Time 02/27/2017 [id number] Discussion regarding transfer of care to adult doctor due to her age. She agreed. [email or web address] Not available 02/27/2017 16:40:54 Reason for Referral Bariatric Surgery Referral f or Morbid obesity Referring Physician: Leslye Landon, Internal Medicine, Encounter Date: 09/19/2021 Results Created Date Observation Date Name Description Value Unit Range Abnormal Flag Note LastModifiedBy Organization Detail LastModifiedTime 09/20/1909/20/2021 TSH+F REE T4 TSH 1.800 uIU/m L 0.450- 4.500 Not Available [facility] ([facility]) [address] [facility], [place], [address], 09/20/2021 09:13:20 09/20/1909/20/2021 TSH+F REE T4 T4,free(dire ct) 1.11 NG/dL 0.82-1 .77 Not Available [facility] ([facility]) [address] [facility], [place], [address], 09/20/2021 09:13:20 09/20/19 22 09/20/2021 CBC, PLATE LET, NO DIFFE RENTI AL WBC 5.0 x10e3 /uL 3.4-10 .8 Not Available [facility] ([facility]) [address] [facility], [place], [address], 09/20/2021 09:13:21 09/20/19 22 09/20/2021 CBC, PLATE LET, NO DIFFE RENTI AL RBC 4.93 x10e6 /uL 3.77-5 .28 Not Available [facility] ([facility]) [address] [place], [address], 09/20/2021 09:13:21 09/20/19 22 09/20/2021 CBC, PLATE LET, NO DIFFE RENTI AL hemoglobin 12.9 g/dL 11.1-1 5.9 Not Available [facility] ([facility]) [address] [place], [address], 09/20/2021 09:13:21 09/20/1909/20/2021 CBC, PLATE LET, NO DIFFE RENTI AL hematocrit 39.6 % 34.0-4 6.6 Not Available [facility] ([facility]) [address] [place], [address], 09/20/2021 09:13:21 09/20/19 22 09/20/2021 CBC, PLATE LET, NO DIFFE RENTI AL MCV 80 fL 79-97 Not Available [facility] ([facility]) [address] [place], [address], 09/20/2021 09:13:21 09/20/19 22 09/20/2021 CBC, PLATE LET, NO DIFFE RENTI AL MCH 26.2 pg 26.6-3 3.0 below low normal Not Available [facility] ([facility]) [address] [place], [address], 09/20/2021 09:13:21 09/20/19 22 09/20/2021 CBC, PLATE LET, NO DIFFE RENTI AL MCHC 32.6 g/dL 31.5-3 5.7 Not Available [facility] ([facility]) [address] [facility], [place], [address], 09/20/2021 09:13:21 09/20/19 22 09/20/2021 CBC, PLATE LET, NO DIFFE RENTI AL RDW 14.5 % 11.7-1 5.4 Not Available [facility] ([facility]) [address] [facility], [place], [address], 09/20/2021 09:13:21 09/20/19 22 09/20/2021 CBC, PLATE LET, NO DIFFE RENTI AL platelets 351 x10e3 /uL 150-45 0 Not Available [facility] ([facility]) [address] [place], [address], 09/20/2021 09:13:21 09/20/19 22 09/20/2021 CBC, PLATE LET, NO DIFFE RENTI AL NRBC 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 Not Available [facility] ([facility]) [address] [place], [address], 09/20/2021 09:13:21 09/20/19 22 09/20/2021 LIPID PANEL cholesterol, total 163 mg/dL 100-19 9 Not Available [facility] ([facility]) [address] [facility], [place], [address], 09/20/2021 09:13:21 09/20/19 22 09/20/2021 LIPID PANEL triglyceride s 91 mg/dL 0-149 Not Available [facility] ([facility]) [address] [place], [address], 09/20/2021 09:13:21 09/20/19 22 09/20/2021 LIPID PANEL HDL cholesterol 42 mg/dL >39 Not Available [facility] ([facility]) [address] [place], [address], 09/20/2021 09:13:21 09/20/19 22 09/20/2021 LIPID PANEL VLDL cholesterol aditya 17 mg/dL 5-40 Not Available [facility] ([facility]) [address] [place], [address], 09/20/2021 09:13:21 09/20/19 22 09/20/2021 LIPID PANEL LDL chol calc ([facility]) 104 mg/dL 0-99 above high normal Not Available [facility] ([facility]) [address] [place], [address], 09/20/2021 09:13:21 09/20/19 22 09/20/2021 LIPID PANEL comment: 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 Not Available [facility] ([facility]) [address] [place], [address], 09/20/2021 09:13:21 09/20/19 22 09/20/2021 IRON AND TIBC iron bind.cap.(TI BC) 347 ug/dL 250-45 0 Not Available [facility] ([facility]) [address] [place], [address], 09/20/2021 09:13:22 09/20/19 22 09/20/2021 IRON AND TIBC UIBC 303 ug/dL 131-42 5 Not Available [facility] ([facility]) [address] [place], [address], 09/20/2021 09:13:22 09/20/19 22 09/20/2021 IRON AND TIBC iron 44 ug/dL 27-159 Not Available [facility] ([facility]) [address] [place], [address], 09/20/2021 09:13:22 09/20/19 22 09/20/2021 IRON AND TIBC iron saturation 13 % 15-55 below low normal Not Available [facility] ([facility]) [address] [facility], [place], [address], 09/20/2021 09:13:22 09/20/19 22 09/20/2021 VITAM IN B12 AND FOLAT E vitamin B12 694 pg/mL 232-12 45 Not Available [facility] ([facility]) [address] [facility], [place], [address], 09/20/2021 09:13:23 09/20/19 22 09/20/2021 VITAM IN B12 AND FOLAT E folate (folic acid), serum 9.0 NG/mL >3.0 A serum folat e ranjith ntrat ion of less than 3.1 ng/mL is consi dered to repre sent clini aditya defic iency . Not Available [facility] ([facility]) [address] [facility], [place], [address], 09/20/2021 09:13:23 09/20/19 22 09/20/2021 CARTER TIN ferritin 23 NG/mL 15-150 Not Available [facility] ([facility]) [address] [facility], [place], [address], 09/20/2021 09:13:23 Result Notes None recorded. Problems Name Problem SNOMED Code Status Onset Date Resolution Date Notes Provider Name and Address Organization Details Recorded Time Heart murmur 90819583 Active 022 Leslye Landon MD Attn: Edwin hernandez,[address] [facility], [place], [address], [facility] - [facility] 2 12:03:27 Morbid obesity 910893956 Active 022 Leslye Landon MD Attn: Edwin hernandez,[address] [facility], [place], [address], [facility] - [facility] 2 12:03:50 Anemia 985308167 Active 017 Marlys Pathak MA null, [place] - [facility] 7 16:12:14 Tetralogy of Fallot 18189293 Active 017 Marlys Pathak MA [facility], [place] - SI 16:14:25 Problem Notes None recorded. Medical Equipment None Reported. Allergies No known drug allergies Medications Name Sig Start Date Stop Date Status Note LastModified by Organization Details LastModified Time furosemide 40 mg tablet TAKE 1 TABLET BY MOUTH EVERY DAY active Not Available Not Available No t Available ibuprofen 800 mg tablet TAKE 1 TABLET BY MOUTH THREE TIMES DAILY NEEDED FOR PAIN active Not Available Not Available No t Available hydrocodone 5 mg-acetamin ophen 325 mg tablet TAKE 1 TABLET BY MOUTH EVERY 6 HOURS NEEDED FOR PAIN OR ACUTE PAIN active Not Available Not Available No t Available sulfamethox azole 800 mg-trimetho prim 160 mg tablet TAKE 1 TABLET BY MOUTH TWICE DAILY FOR 10 DAYS active Not Available Not Available No t Available doxycycline monohydrate 100 mg tablet TAKE 1 TABLET BY MOUTH TWICE DAILY active Not Available Not Available No t Available triamcinolo ne acetonide 0.1 % topical cream APPLY TO THE SKIN TWICE DAILY FOR 7 DAYS active Not Available Not Available No t Available benzonatate 100 mg capsule TAKE 1 CAPSULE BY MOUTH THREE TIMES DAILY NEEDED FOR COUGH active Not Available Not Available No t Available ferrous sulfate 325 mg (65 mg iron) tablet Take 1 tablet every day by oral route. active Not Available Not Available No t Available hydrocortis one 2.5 % topical cream APPLY A THIN LAYER TO THE AFFECTED AREA(S) BY TOPICAL ROUTE 2 TIMES PER DAY 09/19 completed Not Available Not Available Not Available albuterol sulfate HFA 90 mcg/actuati on aerosol inhaler INHALE 2 PUFFS BY MOUTH EVERY 4-6 HOURS NEEDED FOR WHEEZING / SHORTNESS OF BREATH active Not Available Not Available No t Available norethindro ne (contracept mike) 0.35 mg tablet TAKE 1 TABLET BY MOUTH EVERY DAY active Not Available Not Available No t Available fluticasone propionate 50 mcg/actuati on nasal spray,suspe nsion SHAKE LIQUID AND USE 1 SPRAY IN EACH NOSTRIL TWICE DAILY 09/19 completed Not Available Not Available Not Available naproxen 500 mg tablet TAKE 1 TABLET BY MOUTH TWICE DAILY active Not Available Not Available No t Available amoxicillin 875 mg-potassiu m clavulanate 125 mg tablet TAKE 1 TABLET BY MOUTH TWICE DAILY 09/19 completed Not Available Not Available Not Available neomycin-po lymyxin-hyd rocort 3.5 mg-10,000 unit/mL-1 % ear drops,susp INSTILL 4 DROPS IN EACH EAR EVERY 8 HOURS FOR 10 DAYS active Not Available Not Available No t Available ferrous sulfate 09/19 completed Not Available Not Available Not Available Vitamin D 09/19 completed Not Available Not Available Not Available Chest Congestion Relief DM 10 mg-100 mg/5 mL oral syrup TAKE 10 ML BY MOUTH EVERY 12 HOURS NEEDED active Not Available Not Available No t Available Vitals Date Recorded Body height Provider Name an d Address Organization Details Last Updated DateTime 09/19/2021 177.17 cm Migdalia Beaulieu MA [facility] 2 11:14:10 Date Recorded Body mass index (BMI) Body weight Provider Name and Address Organization Details Last Updated DateTime 09/19/2021 52.3 kg/m2 055716.44 g Migdalia Beaulieu MA [facility] 09/19/2021 11:19:36 Date Recorded Body temperature Provider Name a nd Address Organization Details Last Updated DateTime 09/19/2021 98.3 [degF] Migdalia Beaulieu MA [facility] 09/20/19 22 11:20:57 Date Recorded Oxygen saturation Oxygen saturation in Arterial blood by Pulse oximetry Provider Name and Address Organization Details Last Updated DateTime 09/19/2021 98 % 98 % Migdalia Beaulieu MA [facility] 09/19/2021 11:21:00 Date Recorded Heart rate Provider Name an d Address Organization Details Last Updated DateTime 09/19/2021 83 /min Migdalia Beaulieu MA [facility] 2 11:21:03 Date Recorded Body height Provider Name an d Address Organization Details Last Updated DateTime 02/27/2017 177.17 cm Marlys Pathak MA [facility] 2016 16:10:32 Date Recorded Body mass index (BMI) Body weight Provider Name and Address Organization Details Last Updated DateTime 02/27/2017 45.2 kg/m2 071012.62 g Marlys Pathak MA [facility] 02/27/2017 16:10:38 Date Recorded Heart rate Provider Name an d Address Organization Details Last Updated DateTime 02/27/2017 78 /min Marlys Pathak MA [facility] 2016 16:10:51 Date Recorded Respiratory rate Provider Name a nd Address Organization Details Last Updated DateTime 02/27/2017 18 /min Marlys Pathak MA [facility] 02/27/2017 16:10:53 Date Recorded Body temperature Provider Name a nd Address Organization Details Last Updated DateTime 02/27/2017 98.3 [degF] Marlys Ptahak MA [facility] 02/27/2017 16:11:00 Date Recorded Systolic blood pressure Diastolic blood pressure Provider Name and Address Organization Details Last Updated DateTime 09/19/2021 134 mm[Hg] 90 mm[Hg] Migdalia Beaulieu MA [facility] 09/19/2021 11:21:08 Date Recorded Systolic blood pressure Diastolic blood pressure Provider Name and Address Organization Details Last Updated DateTime 09/19/2021 120 mm[Hg] 80 mm[Hg] Leslye Landon MD Attn: [address]ing[address] [place], [address], [facility] 09/19/2021 12:02:29 Date Recorded Systolic blood pressure Diastolic blood pressure Provider Name and Address Organization Details Last Updated DateTime 02/27/2017 120 mm[Hg] 60 mm[Hg] Marlys Pathak MA [facility] 02/27/2017 16:10:42 Social History Question Answer Notes LastModified by Organizat ion Details LastModified Time Tobacco Smoking Status Never Smoker Marlys Pathak MA null, [facility] 02/27/2017 16:15:26 Animal Exposure? No Information not available 02/27/2017 What Is Your Level Of Caffeine Consumption? Occasional Information not available 02/27/2017 What Type Of Diet Are You Following? REGULAR Information not available 02/27/2017 What Is The Fluoride Status Of Your Home? Unknown Information not available 02/27/2017 Are There Any Guns Present In Your Home? No Information not available 02/27/2017 What Is Your Home Situation? Mother Information not available 02/27/2017 Do You Use Insect Repellent Routinely? Yes Information not available 02/27/2017 Car Seat Type Or Seat Belt? Seat Belt Information not available 02/27/2017 Parent Involvement? Both Parents Involved Information not available 02/27/2017 What Was The Date Of Your Most Recent Tobacco Screening? 09/19/2021 [email or web address] Information not available 09/19/2021 What Is Your Parents' Marital Status? Unmarried Information not available 02/27/2017 Pool Exposure No Information not available 02/27/2017 What Is The Name Of Your School? [employer] Information not available 02/27/2017 Do You Have Any Siblings? 6 3 Are Half-sibl ings Information not available 02/27/2017 Do You Have Smoke And Carbon Monoxide Detectors In Your Home? Yes Information not available 02/27/2017 Are You Passively Exposed To Smoke? No Information not available 02/27/2017 Do You Use Sunscreen Routinely? No Information not available 02/27/2017 Year In School College Informat[employer] not available 02/27/2017 Sex: Unknown Functional Status None recorded. Mental Status None recorded. Family History Relationship Description Onset Age of this Age Resolved Age Notes LastModified by Organization Details LastModified Time Unspecified Relation Diabetes mellitus Not available 2016 16:12:34 Unspecified Relation Tetralogy of Fallot Not available 2016 16:15:17 Notes:half-sister has heart problems Medical History Condition Response Anemia Y Heart Problems/Murmur Y Gynecological History Statement/Question Response LMP Obstetrics History GPAL:G 0 P 0 0 0 0 Past Encounters Encounter ID Performer Location Encounter Start Date Encounter Closed Date Diagnosis/Indication Diagnosis SNOMED-CT Code Diagnosis ICD10 Code Diagnosis Note [id number] [facility] [address] [address] 02/27/2017 15:52:38 02/28/2017 11:12:48 Pruritic rash 19548417 L28.2 [id number] Leslye Landon MD [facility] [address] [place] [address] 09/19/2021 10:55:11 09/21/2021 09:20:34 Heart murmur 47763054 R01.1 Tetralogy of Fallot 8629 9006 Q21.3 F/U cardiology as scheduled Anemia 712815902 D64.9 Morbid obesity 814617628 E66.01 Health Concerns Section Related Observation LastModified by Organization Detai ls LastModified Time None Recorded Concern Status LastModified by Organization Details LastModified Time None Recorded Advance Directives Directive None Recorded Payers Encounter Date Sequence Insurance Name Policy Number Policy Dena Covered Member ID Dean Member ID Guarantor Name 02/27/2017 1 [facility] PRIOR TO 01/19/2021 (MEDICAID REPLACEMENT - HMO) Angela Helms [id number] Angela Helms 09/19/2021 1 [facility] ON OR AFTER 01/19/21 (MEDICAID REPLACEMENT - HMO) Angela Helms [id number] Angela Helms Notes Date Note Type Note Provider Name and Address Organization Details Recorded Time 02/27/2017 text/html Follow up of pre vious hospitalization due to dysfunctional uterine bleeding and anemia requiring blood transfusion. According to her record and patient recollection, she will be followed at the adolescent unit. She is here for a complaint of rash, multiple sites. Rash is itchy. No fever. Has been applying HC once daily. Samuel Slaughter MD Attn: [address] [place], [address], [facility] 02/27/2017 16:41:27 09/19/2021 text/html Here for a welln ess check. Wants referral for weight loss surgery. Leslye Landon MD Attn: Accounting[address] [facility], [place], [address], [facility] 09/19/2021 12:08:31 OBGyn Episode No OBEpisode recorded.
== END 2024-08-12 21:07 | disposition home or self-care (01) ==
PROVIDERS: Emergency Medicine; Emergency Provider Emergency Medicine
DX: J10.1 Influenza due to other identified influenza virus with other respiratory manifestations (principal); Z20.822 Contact with and (suspected) exposure to COVID-19; Z86.2 Personal history of diseases of the blood and blood-forming organs and certain disorders involving the immune mechanism
CPT/HCPCS: 87637; 99283; A9270